=== PATIENT | female | born 1990 | race Caucasian/White ===

== ENCOUNTER → 2020-03-16 13:23 | Outpatient (BNVA) | payer MEDICAID, SELFPAY | PROVIDERS: Family Provider Nurse Practitioner; PCP Nurse Practitioner; Visit Provider Obstetrics & Gynecology | DX: Z34.90 Encounter for supervision of normal pregnancy, unspecified, unspecified trimester (principal) | CPT/HCPCS: 81025 ==

== ENCOUNTER → 2020-03-21 14:31 | Outpatient (BNVA) | payer MEDICAID, SELFPAY | PROVIDERS: Family Provider Nurse Practitioner; PCP Nurse Practitioner; Visit Provider Nurse Practitioner Women's Health | DX: O21.9 Vomiting of pregnancy, unspecified (principal); Z3A.10 10 weeks gestation of pregnancy | CPT/HCPCS: 81000 ==

== ENCOUNTER → 2020-03-28 10:43 | Outpatient (BNVA) | payer MEDICAID, SELFPAY | PROVIDERS: Family Provider Nurse Practitioner; PCP Nurse Practitioner; Visit Provider Obstetrics & Gynecology | DX: Z34.90 Encounter for supervision of normal pregnancy, unspecified, unspecified trimester (principal); Z34.80 Encounter for supervision of other normal pregnancy, unspecified trimester | CPT/HCPCS: 80053; 80307; 81000; 85027; 86592; 86762; 86803; 86850; 86900; 87340; 87806 ==

== ENCOUNTER → 2020-04-03 11:50 | Outpatient (BNVA) | payer MEDICAID, SELFPAY | PROVIDERS: Family Provider Nurse Practitioner; PCP Nurse Practitioner; Visit Provider Obstetrics & Gynecology | DX: Z12.4 Encounter for screening for malignant neoplasm of cervix (principal); Z34.80 Encounter for supervision of other normal pregnancy, unspecified trimester; O21.9 Vomiting of pregnancy, unspecified; Z30.2 Encounter for sterilization; F41.8 Other specified anxiety disorders | CPT/HCPCS: 81000; 87491; 87591; 88175 ==

== ENCOUNTER → 2020-05-16 13:08 | Outpatient (BNVA) | payer MEDICAID, SELFPAY | PROVIDERS: Family Provider Nurse Practitioner; PCP Nurse Practitioner; Visit Provider Nurse Practitioner Women's Health | DX: Z30.2 Encounter for sterilization; F41.8 Other specified anxiety disorders; O21.9 Vomiting of pregnancy, unspecified; Z34.80 Encounter for supervision of other normal pregnancy, unspecified trimester | CPT/HCPCS: 81000 ==

== ENCOUNTER 2020-05-27 14:51 | Emergency (ER) | payer MEDICAID, SELFPAY ==
[2020-05-27 15:30] VITALS: BP 114/78; PULSE 91; RESP 16; TEMP 36.3; O2SAT 100; BMI 33.8
[2020-05-27 16:41] VITALS: RESP 18
--- NOTE | 2020-05-27 16:47 | ED_ITS ---
HPI - Allergic Reaction General: Chief complaint: Allergic Reaction Stated complaint: rash, possible allergic reaction Time Seen by Provider: 05/27/20 16:20 History of Present Illness: HPI narrative: 29-year-old female who is at 18 weeks gestation G8, P5 SAB 2. She presents to the emergency room complaining of a rash that is been spreading it is intensely pruritic she was seen earlier in the week at a walk-in clinic they gave her a topical steroid advised her to use it sparingly now she is noted that it spread in anywhere she itches it become significantly worse. She is not having difficulty breathing she does not know of any new soaps or medicines that have changed that seemed might have precipitated this. MD complaint: hives Onset (ago): day(s) Exposure: unknown Associated symptoms: Reports itching and rash; Deny abdominal pain, difficulty breathing, dysphagia, dizziness, facial swelling, hoarseness, lip swelling, nausea, tongue swelling or vomiting Severity: moderate Treatment prior to arrival: topical medicine Previous Allergic Reaction History: none Review of Systems Const: Denies: fever(s), chills, body aches, change in appetite, fatigue or malaise ENMT: Denies: hoarseness Card: Denies: chest pain, edema, dyspnea on exertion or orthopnea Resp: Denies: dyspnea, productive cough or non-productive cough GI: Denies: abdominal pain, nausea, vomiting or dysphagia : Denies: flank pain, difficulty voiding, dysuria, urinary frequency or urinary urgency Skin/Breast: Denies: rash or pruritus Neuro: Denies: dizziness All/Imm: Denies: tongue swelling or facial swelling PFSH ED PFSH: Medical History Anxiety with depression Reports having problems with anxiety and depression since at least the age of 11. Reports trying lots of medication which has never worked. Most recently in October 2019 was on BuSpar for about 2 months and stopped as it did not help her. Chronic headaches Reports having chronic headaches since the age of 5. Has been evaluated and all evaluation has been negative. She takes ibuprofen and Tylenol as needed for headaches. No pertinent past medical history Denies history of: Heart, lung, liver, kidney problems, hypertension, hypercholesterolemia, diabetes, PE/DVT, bleeding/clotting disorders, genital herpes. [facility] [place] [facility] History of appendectomy 2011[place] [facility] [place] History of dilatation and curettage [address] a [address] Archie Abel at [facility] [place] History of laparoscopy 02/16/2010---> Dr. Genao for pelvic pain-normal uterus ovaries and tubes. No endometriosis or scarring noted.(Operative report scanned) S/P wisdom tooth extraction Family History Mother Family history of thyroid problem Diabetes Hypertension Heart disease Thyroid condition Grandmother Breast cancer Paternal grandmother, diagnosed in her late 60s Colon cancer Maternal grandmother, age at diagnosis unknown Diabetes Maternal grandmother Family/Other Breast cancer Paternal aunt, diagnosed in her 40s Ovarian cancer Maternal aunt, age at diagnosis unknown Diabetes Paternal aunt Father Diabetes Hypertension Stroke Denies family history of Hyperlipidemia Uterine cancer Social History Smoking and tobacco status: never smoked Alcohol intake: never Substance/Drug Use: never Additional social history: - Tobacco use: Denies Alcohol use: Denies Drug use: Denies 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 Female Reproductive History: Date of last menstrual period: 01/16/20 Physical Exam Const: COMMON NORMALS: no acute distress GENERAL APPEARANCE: cooperative and comfortable ORIENTATION/CONSCIOUSNESS: Yes awake, Yes oriented to person, Yes oriented to place and Yes oriented to time HENMT: COMMON NORMALS: normocephalic and atraumatic HEAD & SCALP: normocephalic and atraumatic Eye: COMMON NORMALS: Equal, round and reactive pupils present, EOMs intact bilaterally, conjunctivae normal and no scleral icterus CONJUNCTIVA: Yes conjunctivae normal PUPIL: Yes Equal, round and reactive pupils present Neck/C-Spine: COMMON NORMALS: full ROM, no lymphadenopathy, supple and no JVD Lymph: LYMPHATIC: no lymphadenopathy noted and no lymphedema noted Resp: COMMON NORMALS: normal respiratory effort, No retractions, No use of accessory muscles and clear to auscultation bilaterally AUSCULTATION: clear to auscultation bilaterally Cardio: COMMON NORMALS: no JVD, regular rate, regular rhythm and No murmurs present (Cardio) RATE: regular rate RHYTHM: regular rhythm GI: COMMON NORMALS: Soft to palpation and No hepatosplenomegaly present AUSCULTATION: Yes normoactive bowel sounds PALPATION: Yes Soft to palpation, No Tenderness to palpation present (GI), No Guarding due to palpation present (GI) and Yes No hepatosplenomegaly present Extremity: COMMON NORMALS: normal to inspection, capillary refill normal, no clubbing, cyanosis or edema, no calf tenderness and no pedal edema Neuro: SENSORIUM/ORIENTATION: Yes oriented to person, Yes oriented to place and Yes oriented to time Skin: NARRATIVE SKIN EXAM: Typical urticarial wheal and flare on the distal extremities on the trunk sparing the upper and middle back the lower back has some areas of excoriation that are raised urticarial-like lesions. Dermatogr aphia also noted onto the lower extremities. Course Vital Signs: Vital signs: Vital Signs Temperature 97.3 F L 05/27/20 15:30 Pulse Rate 91 05/27/20 15:30 Respiratory Rate 18 05/27/20 16:41 Blood Pressure 114/78 05/27/20 15:30 Pulse Oximetry 100 05/27/20 15:30 MDM - Allergic Reaction MDM Narrative: Medical decision making narrative: Is worried she had bedbugs reassured her this is not bedbugs typical urticaria have her increase her Zyrtec to twice a day we will give her a shot of dexamethasone here and then have her do a Medrol Dosepak follow-up as needed Discharge Plan Discharge Patient Disposition: Home Clinical Impression: Urticaria Condition: Stable Prescriptions: New Medrol (Timoteo) 4 mg tablets,dose pack See Rx Instructions .ROUTE .COMPLEX Qty: 21 RF: 0 Changed Zyrtec 10 mg capsule 10 mg PO BID Qty: 30 RF: 0 No Action acetaminophen [Tylenol] 325 mg capsule 325 mg PO QID PRN (Reason: Pain) RF: 0 triamcinolone acetonide 0.1 % ointment 1 applic TOPICAL BID 3 Days Qty: 15 RF: 0 Vitamin Plus Low Iron 27 mg iron- 1 mg tablet 1 tab PO DAILY RF: 0 Discharge Orders: Discharge Order (Routine); Ordered 05/27/20 Ordered By: Chucky Hurt Referrals: Kailey Espinosa FNP [Primary Care Provider] - Discharge Diet: Usual diet Discharge Activity: Increase activity as tolerated Activity Restrictions/Additional Instructions: Follow-up with your primary care doctor as needed if worsens or changes recheck in the ER with primary care physician Coding Level of Care Code ED Padded Products Inspector Trimmer for Mckenna Robles
[2020-05-27 16:57] VITALS: BP 118/73; PULSE 88; RESP 18; O2SAT 98
[2020-05-27] MEDS: dexamethasone 10 mg/mL INJ IM (16:57)
== END 2020-05-27 16:59 | disposition home or self-care (01) ==
PROVIDERS: Emergency Provider Family Medicine; PCP Nurse Practitioner
DX: O26.892 Other specified pregnancy related conditions, second trimester (principal); L50.9 Urticaria, unspecified; Z3A.18 18 weeks gestation of pregnancy
CPT/HCPCS: 12345; 96372; 99281; 99283; J1100

== ENCOUNTER 2020-05-29 16:37 | Emergency (ER) | payer MEDICAID, SELFPAY ==
[2020-05-29 16:40] VITALS: BP 122/78; PULSE 90; RESP 18; TEMP 36.7; O2SAT 98; BMI 33.8
--- NOTE | 2020-05-29 17:14 | ED_ITS ---
HPI - Allergic Reaction General: Chief complaint: Allergic Reaction Stated complaint: hands and feet swelling, sore throat Time Seen by Provider: 05/29/20 17:13 History of Present Illness: HPI narrative: Patient is a 18 week gestation 29-year-old female who comes to the ED with painful rash on bilateral hands and feet and throat pain. Patient was seen here on May 27 for same complaint and she was given an IM dose of steroids, sent home with a Medrol Dosepak and told to take Zyrtec daily. Patient says today rash continues to spread and she describes it as being more painful to the hands and feet. Patient states that today she woke up and it hurt her to swallow. She has a past medical history of acid reflux and has not been taking any of her acid reflux meds due to being . Patient denies any trouble breathing or throat swelling. Denies any vaginal bleeding or discharge. Associated symptoms: Deny abdominal pain, nausea or vomiting Review of Systems Const: Denies: fever(s), chills or fatigue Eyes: Denies: change in vision or eye discomfort ENMT: Reports: throat pain; Denies: odynophagia, nasal discharge or nasal congestion Card: Denies: chest pain, palpitations, edema, swelling of feet/ankles, dyspnea on exertion or orthopnea Resp: Denies: dyspnea, productive cough or non-productive cough GI: Denies: abdominal pain, nausea, vomiting, diarrhea, constipation or hematochezia : Denies: flank pain, dysuria, hematuria, vaginal bleeding or vaginal discharge Musc: Denies: neck pain, back pain or extremity swelling Skin/Breast: Reports: rash; Denies: new lesions Neuro: Denies: headache(s), numbness in extremities or weakness in extremities [facility] ED PFSH: Medical History Anxiety with depression Reports having problems with anxiety and depression since at least the age of 11. Reports trying lots of medication which has never worked. Most recently in October 2019 was on BuSpar for about 2 months and stopped as it did not help her. Chronic headaches Reports having chronic headaches since the age of 5. Has been evaluated and all evaluation has been negative. She takes ibuprofen and Tylenol as needed for headaches. No pertinent past medical history Denies history of: Heart, lung, liver, kidney problems, hypertension, hypercholesterolemia, diabetes, PE/DVT, bleeding/clotting disorders, genital herpes. PCP: Tierra Fagan [facility] Surgical History History of appendectomy 2011[place] [facility] [place] History of dilatation and curettage 2009 [address] a [address] Archie Abel at [facility] [place] History of laparoscopy 02/16/2010---> Dr. Genao for pelvic pain-normal uterus ovaries and tubes. No endometriosis or scarring noted.(Operative report scanned) S/P wisdom tooth extraction Family History Mother Family history of thyroid problem Diabetes Hypertension Heart disease Thyroid condition Grandmother Breast cancer Paternal grandmother, diagnosed in her late 60s Colon cancer Maternal grandmother, age at diagnosis unknown Diabetes Maternal grandmother Family/Other Breast cancer Paternal aunt, diagnosed in her 40s Ovarian cancer Maternal aunt, age at diagnosis unknown Diabetes Paternal aunt Father Diabetes Hypertension Stroke Denies family history of Hyperlipidemia Uterine cancer Social History Smoking and tobacco status: never smoked Alcohol intake: never Additional social history: - Tobacco use: Denies Alcohol use: Denies Drug use: Denies 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 Female Reproductive History: Date of last menstrual period: 01/16/20 Physical Exam Const: COMMON NORMALS: no acute distress, patient oriented x3, healthy appearing and alert GENERAL APPEARANCE: cooperative and comfortable HENMT: COMMON NORMALS: normocephalic HEAD & SCALP: normocephalic MOUTH: Normal oral and palatal mucosa present THROAT: posterior oropharynx normal and uvula midline Eye: COMMON NORMALS: Equal, round and reactive pupils present PUPIL: Yes Equal, round and reactive pupils present Neck/C-Spine: COMMON NORMALS: supple GENERAL: Yes normal visual inspection Resp: COMMON NORMALS: normal respiratory effort, No retractions, No use of accessory muscles and clear to auscultation bilaterally AUSCULTATION: clear to auscultation bilaterally Cardio: COMMON NORMALS: regular rate, regular rhythm, S1 normal heart sound present, S2 normal heart sound present, No gallops present (Cardio), No clicks present (Cardio), No murmurs present (Cardio) and Peripheral pulses 2+ throughout RATE: regular rate RHYTHM: regular rhythm HEART SOUNDS: S1 normal heart sound present and S2 normal heart sound present PERIPHERAL PULSES: Peripheral pulses 2+ throughout GI: COMMON NORMALS: Normal to inspection, nondistended, normoactive bowel sounds present, Soft to palpation, non-tender and no masses PALPATION: Yes Soft to palpation : COMMON NORMALS: Yes no CVA tenderness BLADDER/KIDNEY EXAM: Yes no CVA tenderness Back/Pelvis: COMMON NORMALS: no CVA tenderness Extremity: NARRATIVE EXTREMITY EXAM: Patient has urticaric rash on both upper and lower extremities bilaterally. Rash is even on dorsal and palmar side of hands and feet. It is pruritic and patient also describes it being a little painful. Neuro: COMMON NORMALS: patient oriented x3 and moves all extremities SENSORIUM/ORIENTATION: Yes alert Skin: NARRATIVE SKIN EXAM: Patient has urticaric rash on both upper and lower extremities bilaterally. Rash is even on dorsal and palmar side of hands and feet. It is pruritic and patient also describes it being a little painful. GENERAL SKIN EXAM: dry skin Course Consultations: Consultation #1: I contacted Dr. Hidalgo the OB doc on-call and discussed patients case with her. Dr. Hidalgo that I can give patient another steroid injection and discharge patient and have her call OB clinic tomorrow and she will see patient to further investigate the rash. Time: 18:15 Vital Signs: Vital signs: Vital Signs Temperature 98.0 F 05/29/20 16:40 Pulse Rate 88 05/29/20 19:00 Respiratory Rate 16 05/29/20 19:00 Blood Pressure 121/90 05/29/20 19:00 Pulse Oximetry 100 05/29/20 19:00 MDM - Allergic Reaction MDM Narrative: Medical decision making narrative: Patient is a 18 weeks gestation normal 29-year-old female comes to the ED with a rash and acid reflux symptoms. Physical exam showed Patient has urticaric rash on both upper and lower extremities bilaterally. Rash is even on dorsal and palmar side of hands and feet. It is pruritic and patient also describes it being a little painful. Denies any shortness of breath or trouble breathing. I contacted Dr. Hidalgo the OB doc on-call and discussed patients case with her. Dr. Hidalgo wanted me to give patient another steroid injection and discharge and have her call OB clinic tomorrow and she will see patient to further investigate the rash. Patient was given Kenalog IM, Mylanta, hydroxyzine and hydrocodone while here in the ED. patient was told to contact Dr. Hidalgo office in morning to set up an appointment for later during the day. Patient understood and agreed with plan. Discharge Plan Discharge Patient Disposition: Home Clinical Impression: Urticaria Condition: Stable Prescriptions: No Action Vitamin Plus Low Iron 27 mg iron- 1 mg tablet 1 tab PO DAILY RF: 0 methylprednisolone [Medrol (Timoteo)] 4 mg tablets,dose pack See Rx Instructions .ROUTE .COMPLEX Qty: 21 RF: 0 Zyrtec 10 mg capsule 10 mg PO BID Qty: 30 RF: 0 Tylenol Extra Strength 500 mg Tablet 1,000 mg PO PRN RF: 0 Discharge Orders: Discharge Order (Routine); Ordered 05/29/20 Ordered By: Bob Bella Referrals: Kailey Espinosa FNP [Primary Care Provider] - Discharge Diet: Regular Discharge Activity: Increase activity as tolerated Patient Instructions: Urticaria (ED) Activity Restrictions/Additional Instructions: Follow-up with medical provider as directed. Contact Dr. Hidalgo's office tomorrow morning, so you can set up an appointment to see her sometime later in the day. Continue taking home medications as prescribed. Return to the ER or your medical provider if condition worsens. Please read and understand discharge instructions. If any questions, please ask. Discharge Date/Time: 05/29/20 19:26 Coding Level of Care Code ED Guitar Instructor for Mckenna Fwrachael Exam Comprehensive
[2020-05-29] MEDS: hyDROXYzine 25 mg Capsule 50 MG PO (17:36)
[2020-05-29] MEDS: HYDROcodone-acetaminophen 5-325 mg Tablet 1 TAB PO (17:36)
[2020-05-29] MEDS: alum-mag-hydroxide-sime 30 mL UDC PO (17:51)
[2020-05-29] MEDS: triamcinolone 40 mg/mL SDV IM (18:42)
[2020-05-29 19:00] VITALS: BP 121/90; PULSE 88; RESP 16; O2SAT 100
== END 2020-05-29 19:26 | disposition home or self-care (01) ==
PROVIDERS: Emergency Provider Physician Assistant; PCP Nurse Practitioner
DX: L50.9 Urticaria, unspecified (principal)
CPT/HCPCS: 12345; 96372; 99283; J3301

== ENCOUNTER 2020-06-01 15:31 | Emergency (ER) | payer MEDICAID, SELFPAY ==
[2020-06-01 15:46] VITALS: BP 139/82; PULSE 97; RESP 14; TEMP 36.8; O2SAT 100; BMI 33.8
--- NOTE | 2020-06-01 16:11 | ED_ITS ---
HPI - General Adult General: Chief complaint: Shortness of Breath/Dyspnea Stated complaint: sob/rash Time Seen by Provider: 06/01/20 16:02 History of Present Illness: HPI narrative: Patient says she is been struggling with anxiety feels short of breath at times. Also with a rash that comes and goes not able to follow Dr. Rocky multani and she said come the ER if needed and asked why the patient is here. Said she also worries about mold and other things in her trailer MD complaint: Anxiety Onset (ago): year(s) Associated symptoms: Reports rash (Comes and goes); Deny chest pain, dyspnea, headache(s), nausea or vomiting Review of Systems Const: Denies: fever(s), chills or body aches Eyes: Denies: change in vision or blurry vision ENMT: Denies: throat pain or nasal congestion Card: Denies: chest pain or dyspnea on exertion Resp: Denies: dyspnea, productive cough or non-productive cough GI: Denies: abdominal pain, nausea or vomiting Musc: Denies: extremity pain Skin/Breast: Reports: rash (Comes and goes) Neuro: Denies: headache(s) Psych: Reports: anxiety; Denies: depression Jw/Lymph: Denies: easy bruising PFSH ED PFSH: Medical History Anxiety with depression Reports having problems with anxiety and depression since at least the age of 11. Reports trying lots of medication which has never worked. Most recently in October 2019 was on BuSpar for about 2 months and stopped as it did not help her. Chronic headaches Reports having chronic headaches since the age of 5. Has been evaluated and all evaluation has been negative. She takes ibuprofen and Tylenol as needed for headaches. No pertinent past medical history Denies history of: Heart, lung, liver, kidney problems, hypertension, hypercholesterolemia, diabetes, PE/DVT, bleeding/clotting disorders, genital herpes. PCP: Tierra Fagan [facility] Surgical History History of appendectomy 2011[place] [facility] [place] History of dilatation and curettage [address] a [address] Archie Abel at [facility] [place] History of laparoscopy 02/16/2010---> Dr. Genao for pelvic pain-normal uterus ovaries and tubes. No endometriosis or scarring noted.(Operative report scanned) S/P wisdom tooth extraction Family History Mother Family history of thyroid problem Diabetes Hypertension Heart disease Thyroid condition Grandmother Breast cancer Paternal grandmother, diagnosed in her late 60s Colon cancer Maternal grandmother, age at diagnosis unknown Diabetes Maternal grandmother Family/Other Breast cancer Paternal aunt, diagnosed in her 40s Ovarian cancer Maternal aunt, age at diagnosis unknown Diabetes Paternal aunt Father Diabetes Hypertension Stroke Denies family history of Hyperlipidemia Uterine cancer Social History Smoking and tobacco status: never smoked Alcohol intake: never Additional social history: - Tobacco use: Denies Alcohol use: Denies Drug use: Denies 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 Female Reproductive History: Date of last menstrual period: 01/08/20 Physical Exam Const: COMMON NORMALS: no acute distress, average body habitus and patient oriented x3 HENMT: COMMON NORMALS: normocephalic HEAD & SCALP: normal to inspection and normocephalic FACE & SINUS: normal facial exam Eye: COMMON NORMALS: conjunctivae normal GENERAL EYE: appearance normal, both eyes and all related structures CONJUNCTIVA: Yes conjunctivae normal Neck/C-Spine: COMMON NORMALS: no JVD Chest: COMMONS NORMALS: normal inspection of the chest Resp: COMMON NORMALS: normal respiratory effort and clear to auscultation bilaterally AUSCULTATION: clear to auscultation bilaterally Cardio: COMMON NORMALS: no JVD, regular rate and regular rhythm RATE: regular rate RHYTHM: regular rhythm GI: COMMON NORMALS: Normal to inspection, nondistended, normoactive bowel sounds present Extremity: COMMON NORMALS: normal to inspection and full ROM Neuro: COMMON NORMALS: patient oriented x3 Psych: MOOD & AFFECT: Yes anxious Skin: COMMON NORMALS: no rashes or lesions noted GENERAL SKIN EXAM: no rashes or lesions noted Course Vital Signs: Vital signs: Vital Signs Temperature 98.3 F 06/01/20 15:46 Pulse Rate 97 06/01/20 15:46 Respiratory Rate 14 06/01/20 15:46 Blood Pressure 139/82 06/01/20 15:46 Pulse Oximetry 100 06/01/20 15:46 Discharge Plan Discharge Condition: Good Prescriptions: No Action Vitamin Plus Low Iron 27 mg iron- 1 mg tablet 1 tab PO DAILY RF: 0 methylprednisolone [Medrol (Timoteo)] 4 mg tablets,dose pack See Rx Instructions .ROUTE .COMPLEX Qty: 21 RF: 0 Zyrtec 10 mg capsule 10 mg PO BID Qty: 30 RF: 0 Tylenol Extra Strength 500 mg Tablet 1,000 mg PO PRN RF: 0 Coding Level of Care Code ED Software Build Engineer for Mckenna Robles
[2020-06-01 16:15] VITALS: RESP 18
== END 2020-06-01 16:29 | disposition home or self-care (01) ==
LOC: ER 16:21
PROVIDERS: Emergency Provider Nurse Practitioner Family; PCP Nurse Practitioner
DX: R06.02 Shortness of breath (principal); R21 Rash and other nonspecific skin eruption
CPT/HCPCS: 12345; 99281

== ENCOUNTER → 2020-06-19 13:04 | Outpatient (BNVA) | payer MEDICAID, SELFPAY | PROVIDERS: PCP Nurse Practitioner; Visit Provider Obstetrics & Gynecology | DX: Z34.90 Encounter for supervision of normal pregnancy, unspecified, unspecified trimester (principal) | CPT/HCPCS: 81000 ==

== ENCOUNTER 2020-06-21 18:41 | Emergency (ER) | payer MEDICAID, SELFPAY ==
--- NOTE | 2020-06-21 18:44 | ECG_ITS ---
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 Measurements Intervals [place] Rate: 91 P: 51 DE: 142 QRS: 44 QRSD: 90 T: 29 QT: 346 QTc: 427 Interpretive Statements SINUS RHYTHM No previous ECG available for comparison Electronically Signed On 06-22-2020 19:32:00 CDT by Andrea Castro M.D. [id number]
[2020-06-21 18:46] VITALS: BP 110/66; PULSE 96; RESP 16; TEMP 37.1; O2SAT 100; BMI 36.6
[2020-06-21 19:18] LABS: Eosinophils # 0.1 10^3/uL (0.0-0.8); Eosinophils % 1.4 %; Hematocrit 33.8 % (37.0-47.0); Hemoglobin 10.6 g/dL (11.5-15.3); Lymphocytes # 0.8 10^3/uL (0.8-4.8); Lymphocytes % 21.3 %; Mean Corpuscular HGB Conc 31.4 g/dL (30.0-36.0); Mean Corpuscular Hemoglobin 28.6 pg (28.0-34.0); Mean Corpuscular Volume 91.1 fL (81-99); Mean Platelet Volume 9.1 fL (7.4-10.4); Monocytes # 0.3 10^3/uL (0.2-0.9); Monocytes % 8.2 %; Neutrophils # 2.52 10^3/uL (1.8-7.7); Neutrophils % 68.8 %; Nucleated Red Blood Cells % 0 %; Platelet Count 246 10^3/cmm (130-400); Red Blood Count 3.71 10^6/uL (4.1-5.3); Red Cell Distribution Width 12.9 % (12.1-15.1); White Blood Count 3.7 10^3/uL (4.0-10.0)
[2020-06-21 19:34] LABS: Alanine Aminotransferase < 5 U/L (0-33); Alkaline Phosphatase 77 IU/L (35-105); Anion Gap 14.5 (5-19); Aspartate Amino Transferase 7 U/L (0-32); Blood Urea Nitrogen 5 mg/dL (6-20); Calcium 7.7 mg/dL (8.5-10.5); Carbon Dioxide 18 mmol/L (22-29); Chloride 106 mmol/L (98-107); Globulin 2.7 g/dL (1.3-4.6); Glomerular Filtration Rate 186.2 mL/min (90-130); Glucose 109 mg/dL (65-115); Osmolality Calculated 278 mOsm/kg (285-295); Potassium 3.5 mmol/L (3.5-5.1); Sodium 135 mmol/L (136-145); Total Bilirubin 0.2 mg/dL (0.15-1.2); Total Protein 5.7 g/dL (6.6-8.7)
[2020-06-21 19:36] LABS: D Dimer 0.62 ug/mIFEU (0-0.59); Troponin(5th) Baseline 6 ng/L (0-10)
--- NOTE | 2020-06-21 20:55 | ECG_ITS ---
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 Measurements Intervals [place] Rate: 90 P: 45 [place]: 144 QRS: 43 QRSD: 84 T: 21 QT: 348 QTc: 427 Interpretive Statements SINUS RHYTHM Compared to ECG 06/21/2020 18:56:26 No significant changes Electronically Signed On 06-22-2020 19:45:56 CDT by Andrea Castro M.D. [id number] f
--- NOTE | 2020-06-21 20:55 | ECG_ITS ---
[facility] Test Date: 2020-06-21 Pat Name: Nerissa Sutherland Department: Room: Gender: Female Junior Administrative Assistant: : 1990 Requested By: Marielena Figueroa Order Number: [id number] Conor MD: Andrea Castro M.D. Measurements Intervals [place] Rate: 91 P: 51 NV: 142 QRS: 44 QRSD: 90 T: 29 QT: 346 QTc: 427 Interpretive Statements SINUS RHYTHM No previous ECG available for comparison Electronically Signed On 06-22-2020 19:44:07 CDT by Andrea Castro M.D. [id number]
--- NOTE | 2020-06-21 21:06 | W.ED.CHESTPA ---
HPI - Chest Pain General: Chief Complaint: Chest Pain Stated Complaint: CHEST PAIN Time Seen by Provider: 06/21/20 18:42 History of Present Illness: HPI narrative: This patient is a 29-year-old female who presents with chest pain. She is about 22 weeks . She has a lot of stress in her life right now. This is her sixth child that she is with now. 1 of her children is autistic and very difficult to manage at home. Her boyfriend just found out that he has cancer. She notes that she does not get along with the rest of her family. She has a history of anxiety and depression. Her chest pain is been constant all day. She describes it as a dull sensation in the left upper part of her lung. Nothing makes it better or worse. She has never had it before. She is not short of breath. She has not had unusual nausea. No problems with the so far and she is feeling the baby move. complaint: chest heaviness (Left upper) Onset (ago): day(s) (Today) Timing of current episode: constant Prior episodes: No Onset: during rest Pain location: left chest Pain radiation: none Severity: moderate Quality: aching Exacerbating factors: nothing Associated symptoms: Reports no associated symptoms; Deny abdominal pain, dyspnea, fever(s), nausea or vomiting Review of Systems General: Reports: 10 or more systems reviewed and unremarkable except in HPI and below Const: Reports: fatigue and malaise; Denies: fever(s) or chills Eyes: Denies: change in vision ENMT: Denies: odynophagia Card: Reports: chest pain; Denies: swelling of feet/ankles Resp: Denies: dyspnea, productive cough or non-productive cough GI: Denies: abdominal pain, nausea or vomiting : Denies: flank pain or difficulty voiding Musc: Denies: neck pain or back pain Skin/Breast: Denies: rash Neuro: Denies: headache(s), numbness in extremities or weakness in extremities Jw/Lymph: Denies: easy bruising or easy bleeding PFSH ED PFSH: Medical History Anxiety with depression Reports having problems with anxiety and depression since at least the age of 11. Reports trying lots of medication which has never worked. Most recently in October 2019 was on BuSpar for about 2 months and stopped as it did not help her. Chronic headaches Reports having chronic headaches since the age of 5. Has been evaluated and all evaluation has been negative. She takes ibuprofen and Tylenol as needed for headaches. No pertinent past medical history Denies diabetes, asthma, hypertension, seizures, DVT/PE. PCP: Tierra Fagan [facility] Surgical History History of appendectomy 2011-laparoscopic procedure at [facility] [place] History of dilatation and curettage [address] a [address] Archie Abel at [facility] [place] History of laparoscopy 02/16/2010---> Dr. Genao for pelvic pain-normal uterus ovaries and tubes. No endometriosis or scarring noted.(Operative report scanned) S/P wisdom tooth extraction Family History Mother Family history of thyroid problem Diabetes Hypertension Heart disease Thyroid condition Grandmother Breast cancer Paternal grandmother, diagnosed in her late 60s Colon cancer Maternal grandmother, age at diagnosis unknown Diabetes Maternal grandmother Family/Other Breast cancer Paternal aunt, diagnosed in her 40s Ovarian cancer Maternal aunt, age at diagnosis unknown Diabetes Paternal aunt Father Diabetes Hypertension Stroke Denies family history of Hyperlipidemia Uterine cancer Social History Smoking and tobacco status: never smoked Alcohol intake: never Female Reproductive History: Date of last menstrual period: 01/06/20 Physical Exam Const: COMMON NORMALS: no acute distress, patient oriented x3, no limitations and alert GENERAL APPEARANCE: cooperative and comfortable HENMT: HEAD & SCALP: normal to inspection FACE & SINUS: normal facial exam Eye: GENERAL EYE: appearance normal, both eyes and all related structures Neck/C-Spine: COMMON NORMALS: supple, no meningeal signs and no JVD Chest: COMMONS NORMALS: normal inspection of the chest Resp: COMMON NORMALS: normal respiratory effort, No use of accessory muscles and clear to auscultation bilaterally AUSCULTATION: clear to auscultation bilaterally Cardio: COMMON NORMALS: no JVD, regular rate, regular rhythm and No murmurs present (Cardio) RATE: regular rate RHYTHM: regular rhythm GI: COMMON NORMALS: Normal to inspection, nondistended, normoactive bowel sounds present, Soft to palpation and non-tender INSPECTION: Yes normal to inspection and Yes gravid abdomen AUSCULTATION: Yes normoactive bowel sounds PALPATION: Yes Soft to palpation Back/Pelvis: COMMON NORMALS: thoracic and lumbar spine normal to inspection Extremity: COMMON NORMALS: normal to inspection Neuro: COMMON NORMALS: patient oriented x3, moves all extremities, no focal motor deficits and no sensory deficits noted SENSORIUM/ORIENTATION: Yes alert MENINGEAL SIGNS: Yes no meningeal signs Psych: COMMON NORMALS: mental status grossly normal, cooperative and normal affect Skin: COMMON NORMALS: no rashes or lesions noted and turgor normal GENERAL SKIN EXAM: no rashes or lesions noted and turgor normal Course ED course: Patient with chest pain which does not seem cardiac. She has had constant pain all day. No history of DVT. She is so at risk of that. Her pain is certainly not typical for that but needs to be ruled out. Vital signs are normal. Sat is 100%. Labs have been sent and she was resting comfortably and asking for something to eat. Vital Signs: Vital signs: Vital Signs Temperature 98.5 F 06/21/20 22:46 Pulse Rate 92 06/21/20 22:46 Respiratory Rate 18 06/21/20 22:46 Blood Pressure 105/73 06/21/20 22:46 Pulse Oximetry 99 06/21/20 22:46 MDM - Chest Pain Lab Data: Labs: Lab Results 06/21/20 06/21/20 06/21/20 Range/Units 19:11 19:11 19:11 WBC 3.7 L (4.0-10.0) 10^3/ uL RBC 3.71 L (4.1-5.3) 10^6/u L Hgb 10.6 L (11.5-15.3) g/dL Hct 33.8 L (37.0-47.0) % MCV 91.1 (81-99) fL MCH 28.6 (28.0-34.0) pg MCHC 31.4 (30.0-36.0) g/dL RDW 12.9 (12.1-15.1) % Plt Count 246 (130-400) 10^3/c mm MPV 9.1 (7.4-10.4) fL Neut % (Auto) 68.8 % Lymph % (Auto) 21.3 % [place] % (Auto) 8.2 % Eos % (Auto) 1.4 % Baso % (Auto) 0.0 % Neut # (Auto) 2.52 (1.8-7.7) 10^3/u L Lymph # (Auto) 0.8 (0.8-4.8) 10^3/u L [place] # (Auto) 0.3 (0.2-0.9) 10^3/u L Eos # (Auto) 0.1 (0.0-0.8) 10^3/u L Baso # (Auto) 0.0 (0.0-0.1) 10^3/u L Nucleated RBC % (a uto) 0 % Nucleated RBCs # 0.0 /100WBC D-Dimer 0.62 H (0-0.59) ug/mIFE U Sodium 135 L (136-145) mmol/L Potassium 3.5 (3.5-5.1) mmol/L Chloride 106 (98-107) mmol/L Carbon Dioxide 18 L (22-29) mmol/L Anion Gap 14.5 (5-19) BUN 5 L (6-20) mg/dL Creatinine 0.4 L (0.5-0.9) mg/dL GFR Calculation 186.2 H (90-130) mL/min Glucose 109 (65-115) mg/dL Calculated Osmolal ity 278 L (285-295) mOsm/k g Calcium 7.7 L (8.5-10.5) mg/dL Total Bilirubin 0.2 (0.15-1.2) mg/dL AST 7 (0-32) U/L ALT < 5 (0-33) U/L Alkaline Phosphata se 77 (35-105) IU/L Troponin T Baselin e (0-10) ng/L Troponin T 120 Min [place] (0-10) ng/L Delta Troponin T (0-10) ABS# Total Protein 5.7 L (6.6-8.7) g/dL Albumin 3.0 L (3.5-5.2) g/dL Globulin 2.7 (1.3-4.6) g/dL 06/21/20 06/21/20 Range/Units 19:11 22:01 WBC (4.0-10.0) 10^3/ uL RBC (4.1-5.3) 10^6/u L Hgb (11.5-15.3) g/dL Hct (37.0-47.0) % MCV (81-99) fL MCH (28.0-34.0) pg MCHC (30.0-36.0) g/dL RDW (12.1-15.1) % Plt Count (130-400) 10^3/c mm MPV (7.4-10.4) fL Neut % (Auto) % Lymph % (Auto) % [place] % (Auto) % Eos % (Auto) % Baso % (Auto) % Neut # (Auto) (1.8-7.7) 10^3/u L Lymph # (Auto) (0.8-4.8) 10^3/u L [place] # (Auto) (0.2-0.9) 10^3/u L Eos # (Auto) (0.0-0.8) 10^3/u L Baso # (Auto) (0.0-0.1) 10^3/u L Nucleated RBC % (a uto) % Nucleated RBCs # /100WBC D-Dimer (0-0.59) ug/mIFE U Sodium (136-145) mmol/L Potassium (3.5-5.1) mmol/L Chloride (98-107) mmol/L Carbon Dioxide (22-29) mmol/L Anion Gap (5-19) BUN (6-20) mg/dL Creatinine (0.5-0.9) mg/dL GFR Calculation (90-130) mL/min Glucose (65-115) mg/dL Calculated Osmolal ity (285-295) mOsm/k g Calcium (8.5-10.5) mg/dL Total Bilirubin (0.15-1.2) mg/dL AST (0-32) U/L ALT (0-33) U/L Alkaline Phosphata se (35-105) IU/L Troponin T Baselin e 6 (0-10) ng/L Troponin T 120 Min [place] 6.00 (0-10) ng/L Delta Troponin T 0 (0-10) ABS# Total Protein (6.6-8.7) g/dL Albumin (3.5-5.2) g/dL Globulin (1.3-4.6) g/dL Discharge Plan Discharge Patient Disposition: Home Clinical Impression: Chest pain Qualifiers: Chest pain type: unspecified Qualified Code(s): R07.9 - Chest pain, unspecified Qualifiers: Weeks of gestation: 21 weeks Qualified Code(s): Z3A.21 - 21 weeks gestation of Condition: Stable Prescriptions: No Action Vitamin Plus Low Iron 27 mg iron- 1 mg tablet 1 tab PO DAILY RF: 0 Zyrtec 10 mg capsule 10 mg PO BID Qty: 30 RF: 0 acetaminophen [Tylenol Extra Strength] 500 mg Tablet 1,000 mg PO PRN RF: 0 Discharge Orders: Discharge Order (Routine); Ordered 06/21/20 Ordered By: Marielena Damian Discharge Diet: Usual diet Discharge Activity: Resume usual activity Patient Instructions: Chest Pain (ED) Activity Restrictions/Additional Instructions: Return to the emergency department if new or worse symptoms including worsening chest pain or shortness of breath. Follow-up with your NETWORK DESKTOP SUPPORT SPECIALIST for regular care and to discuss your stress, anxiety issues. Discharge Date/Time: 06/21/20 22:54 Coding Level of Care Code ED Central Office Equipment Installer for Mckenna Fwd Exam Comprehensive
--- NOTE | 2020-06-21 21:31 | PC.NURSE ---
Up to bathroom @ 1950 given soda and pudding per her request.
[2020-06-21 21:38] VITALS: BP 97/66; PULSE 74; RESP 20; O2SAT 99
[2020-06-21 22:34] LABS: Troponin 5 2HR Delta 0 ABS# (0-10)
[2020-06-21 22:46] VITALS: BP 105/73; PULSE 92; RESP 18; TEMP 36.9; O2SAT 99
== END 2020-06-21 22:54 | disposition home or self-care (01) ==
PROVIDERS: Emergency Provider Emergency Medicine
DX: O26.892 Other specified pregnancy related conditions, second trimester (principal); R07.9 Chest pain, unspecified; Z3A.21 21 weeks gestation of pregnancy
CPT/HCPCS: 12345; 36415; 80053; 84484; 85025; 85378; 93005; 99281; 99283

== ENCOUNTER → 2020-07-10 12:59 | Outpatient (BNVA) | payer MEDICAID, SELFPAY | PROVIDERS: Visit Provider Obstetrics & Gynecology | DX: Z34.90 Encounter for supervision of normal pregnancy, unspecified, unspecified trimester (principal) | CPT/HCPCS: 81000 ==

== ENCOUNTER 2020-07-16 18:27 | Outpatient (CLI) | payer MEDICAID, SELFPAY ==
[2020-07-16] VITALS (8 sets, daily range): BP systolic 0–116; BP diastolic 0–70; PULSE 83–87; RESP 16; TEMP 36.9; BMI 34.0
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
[2020-07-16] MEDS: acetaminophen 325 mg Tablet 650 MG PO (20:11)
== END 2020-07-16 21:20 | disposition home or self-care (01) ==
LOC: OPOB 18:39 → OBGYN 19:03
PROVIDERS: Visit Provider Obstetrics & Gynecology
DX: O71.89 Other specified obstetric trauma (principal); Z3A.00 Weeks of gestation of pregnancy not specified
CPT/HCPCS: 76815; 99211

== ENCOUNTER → 2020-08-08 15:31 | Outpatient (BNVA) | payer MEDICAID, SELFPAY | PROVIDERS: Visit Provider Obstetrics & Gynecology | DX: Z34.80 Encounter for supervision of other normal pregnancy, unspecified trimester (principal); Z30.2 Encounter for sterilization | CPT/HCPCS: 81000; 82950; 85027 ==

== ENCOUNTER → 2020-08-21 14:33 | Outpatient (BNVA) | payer MEDICAID, SELFPAY | PROVIDERS: Visit Provider Obstetrics & Gynecology | DX: Z34.90 Encounter for supervision of normal pregnancy, unspecified, unspecified trimester (principal) | CPT/HCPCS: 81000 ==

== ENCOUNTER → 2020-09-04 14:24 | Outpatient (BNVA) | payer MEDICAID, SELFPAY | PROVIDERS: Visit Provider Obstetrics & Gynecology | DX: O99.613 Diseases of the digestive system complicating pregnancy, third trimester (principal); O99.013 Anemia complicating pregnancy, third trimester; K21.9 Gastro-esophageal reflux disease without esophagitis; Z30.2 Encounter for sterilization; F41.8 Other specified anxiety disorders | CPT/HCPCS: 81000; 85025 ==

== ENCOUNTER → 2020-09-06 10:22 | Outpatient (BNVA) | payer MEDICAID, SELFPAY | PROVIDERS: Visit Provider Internal Medicine | DX: O99.013 Anemia complicating pregnancy, third trimester (principal) | CPT/HCPCS: 82607; 82746; 83550; 84443; 85045 ==

== ENCOUNTER → 2020-09-18 15:14 | Outpatient (BNVA) | payer MEDICAID, SELFPAY | PROVIDERS: Visit Provider Obstetrics & Gynecology | DX: Z34.90 Encounter for supervision of normal pregnancy, unspecified, unspecified trimester (principal) | CPT/HCPCS: 81000 ==

== ENCOUNTER 2020-09-21 10:25 | Outpatient (RCR) | payer MEDICAID, SELFPAY ==
[2020-09-21 10:25] VITALS: BP 116/86; PULSE 87; RESP 18; TEMP 36.1; O2SAT 98
[2020-09-21 11:11] VITALS: BMI 34.7
[2020-09-21] MEDS: iron sucrose 500 MG in sodium chloride 0.9% 250 ML 68.8 MG IV (11:33)
== END 2020-10-05 23:59 | disposition home or self-care (01) ==
LOC: OPS 10:25
PROVIDERS: Visit Provider Internal Medicine
DX: O99.013 Anemia complicating pregnancy, third trimester (principal); Z3A.00 Weeks of gestation of pregnancy not specified
CPT/HCPCS: 96365; 96366; J1756; J7050

== ENCOUNTER → 2020-10-02 13:14 | Outpatient (BNVA) | payer MEDICAID, SELFPAY | PROVIDERS: Visit Provider Obstetrics & Gynecology | DX: Z34.80 Encounter for supervision of other normal pregnancy, unspecified trimester (principal) | CPT/HCPCS: 81000; 87081 ==

== ENCOUNTER 2020-10-04 20:35 | Outpatient (CLI) | payer MEDICAID, SELFPAY ==
[2020-10-04] VITALS (13 sets, daily range): BP systolic 92–109; BP diastolic 54–67; PULSE 86–131; TEMP 36.1–36.3; BMI 34.7
[2020-10-04] MEDS: acetaminophen 500 mg Tablet 1000 MG PO (22:58)
--- NOTE | 2020-10-26 09:41 | PC.NURSE ---
Admission order placed by this nurse for the primary.
== END 2020-10-04 23:14 | disposition home or self-care (01) ==
LOC: OPOB 20:41 → OBGYN 22:57
PROVIDERS: Visit Provider Obstetrics & Gynecology
DX: O26.899 Other specified pregnancy related conditions, unspecified trimester (principal); Z3A.00 Weeks of gestation of pregnancy not specified; R10.9 Unspecified abdominal pain
CPT/HCPCS: 59025; 99211

== ENCOUNTER → 2020-10-09 13:37 | Outpatient (BNVA) | payer MEDICAID, SELFPAY | PROVIDERS: Visit Provider Obstetrics & Gynecology | DX: O99.613 Diseases of the digestive system complicating pregnancy, third trimester (principal); K21.9 Gastro-esophageal reflux disease without esophagitis | CPT/HCPCS: 81000 ==

== ENCOUNTER 2020-10-14 21:22 | Outpatient (CLI) | payer BC, MEDICAID, SELFPAY ==
[2020-10-14] VITALS (31 sets, daily range): BP systolic 102; BP diastolic 65; PULSE 78–96; RESP 15; TEMP 36.4; O2SAT 97–100; BMI 35.8
[2020-10-14 22:43] LABS: Nitrazine Paper, PH Negative
[2020-10-14 23:44] LABS: Nitrazine Paper, PH Negative
[2020-10-15] VITALS (8 sets, daily range): BP systolic 109; BP diastolic 68; PULSE 85–92; TEMP 36.6; O2SAT 97–98
--- NOTE | 2020-10-15 00:30 | PC.NURSE ---
Discharge packet unable to print, RN at bedside all questions answered.
[2020-10-15 01:22] LABS: Nitrazine Paper, PH Negative
== END 2020-10-15 00:38 | disposition home or self-care (01) ==
LOC: OPOB 21:32 → OBGYN 21:35
PROVIDERS: Visit Provider Obstetrics & Gynecology
DX: O26.899 Other specified pregnancy related conditions, unspecified trimester (principal); Z3A.00 Weeks of gestation of pregnancy not specified; R10.9 Unspecified abdominal pain
CPT/HCPCS: 59025; 83986; 99211

== ENCOUNTER → 2020-10-16 13:24 | Outpatient (BNVA) | payer BC, MEDICAID, SELFPAY | PROVIDERS: Visit Provider Obstetrics & Gynecology | DX: O99.013 Anemia complicating pregnancy, third trimester (principal); O99.613 Diseases of the digestive system complicating pregnancy, third trimester; K21.9 Gastro-esophageal reflux disease without esophagitis; F41.8 Other specified anxiety disorders; Z30.2 Encounter for sterilization | CPT/HCPCS: 81000 ==

== ENCOUNTER 2020-10-19 17:26 | Outpatient (CLI) | payer BC, MEDICAID, SELFPAY ==
[2020-10-19 17:42] VITALS: BP 107/70; PULSE 111
[2020-10-19 17:48] VITALS: RESP 15; TEMP 36.2
[2020-10-19 18:00] VITALS: BMI 34.5
[2020-10-19 18:03] VITALS: BP 105/65; PULSE 91
[2020-10-19 18:11] LABS: Nitrazine Paper, PH Negative
[2020-10-19 18:23] VITALS: BP 99/64; PULSE 90
[2020-10-19 18:43] VITALS: BP 95/64; PULSE 88
[2020-10-19 18:50] VITALS: RESP 16
== END 2020-10-19 19:19 | disposition home or self-care (01) ==
LOC: OPOB 17:27 → OBGYN 17:38
PROVIDERS: Visit Provider Obstetrics & Gynecology
DX: O26.899 Other specified pregnancy related conditions, unspecified trimester (principal); Z3A.00 Weeks of gestation of pregnancy not specified; M54.5 Low back pain
CPT/HCPCS: 83986; 87635; 99211

== ENCOUNTER 2020-10-23 21:12 | Inpatient (IN) | payer BC, SELFPAY ==
[2020-10-23] VITALS (35 sets, daily range): BP systolic 95–119; BP diastolic 57–73; PULSE 78–110; TEMP 36.3; O2SAT 97–100; BMI 34.7
[2020-10-23] MEDS: dextrose 5%-sod chloride 0.9% 1,000 ML 999 ML IV (22:29)
[2020-10-23 22:59] LABS: Basophils % 0.3 %; Eosinophils # 0.1 10^3/uL (0.0-0.8); Eosinophils % 0.7 %; Hematocrit 33.5 % (37.0-47.0); Hemoglobin 10.7 g/dL (11.5-15.3); Lymphocytes # 1.3 10^3/uL (0.8-4.8); Lymphocytes % 18.7 %; Mean Corpuscular HGB Conc 31.9 g/dL (30.0-36.0); Mean Corpuscular Hemoglobin 26.7 pg (28.0-34.0); Mean Corpuscular Volume 83.5 fL (81-99); Mean Platelet Volume 11.3 fL (7.4-10.4); Monocytes # 0.4 10^3/uL (0.2-0.9); Monocytes % 5.6 %; Neutrophils # 5.29 10^3/uL (1.8-7.7); Neutrophils % 74.4 %; Nucleated Red Blood Cells % 0 %; Platelet Count 225 10^3/cmm (130-400); Red Blood Count 4.01 10^6/uL (4.1-5.3); White Blood Count 7.1 10^3/uL (4.0-10.0)
[2020-10-23] MEDS: alum-mag-hydroxide-sime 30 mL UDC PO (23:17)
[2020-10-24] VITALS (118 sets, daily range): BP systolic 85–167; BP diastolic 53–82; PULSE 65–111; RESP 16–17; TEMP 36.2; O2SAT 90–100
[2020-10-24] MEDS: oxytocin 30 UNIT/500 ML BAG IV (02:00)
[2020-10-24] MEDS: alum-mag-hydroxide-sime 30 mL UDC PO (05:25)
[2020-10-24] MEDS: lactated ringers 1,000 ML 999 ML IV (05:35)
--- NOTE | 2020-10-24 06:40 | P.ANESASSM_ITS ---
Documented by User: Cuate Partida CRNA 10/24/20 06:42 Pre-Anesthetic Assessment Pre-Anesthetic Assessment: Height/Weight: Height 1.57 m Weight 86.183 kg Temp Pulse BP Pulse Ox 97.2 F L 70 117/75 98 10/24/20 03:50 10/24/20 06:25 10/24/20 06:25 10/24/20 01:06 Preop Diagnosis: labor pains Proposed Procedure: epidural Social: Social History: No alcohol and No tobacco Exam: Pre-Anes Outpt Exam: alert, oriented x 3, clear to auscultation bilaterally and regular rate & rhythm Airway: Submandibular: WNL Cervical ROM: WNL MP: 2 Dentition: Full Pulmonary: Pulmonary: None reported CV/HEM: CV/HEM: Anemia : : None reported Hepatic: Hepatic: None reported GI: GI: GERD Musc/skel: Musc/skel: None reported Neuropsych: Neuropsych: Anxiety, Depression and GOETZ Anesthetic Plan: Anesthesia: Regional (specify below) Risk of > 500 ml bl ood loss (7ml/kg in children): No Meds/Allergies Current Medications: Current Medications Generic Name Dose Route Start Last Admin Trade Name Freq PRN Reason Stop Dose Admin Al Hydrox/Mg Raymond x/Simethicone 30 ml 10/23/20 21:51 10/24/20 05:25 Aelw-Itj-Kjwakba de-Ab 30 Ml Udc PO 30 ml Q4H PRN Administration INDIGESTION Dextrose/Sodium Ch loride 1,000 mls @ 125 m ls/hr 10/23/20 22:00 10/24/20 03:15 Dextrose 5%-Sod Chloride 0.9% IV Infused .Q8H PARTHA Infusion Oxytocin 30 unit in 500 ml s @ 1 mls/hr 10/24/20 01:45 10/24/20 02:00 Pitocin IV 1 milliunit/min .Q24H PARTHA 1 mls/hr Administration Protocol 1 MILLIUNIT/MIN PFSH Anesthesia PFSH: Medical History Anxiety with depression Reports having problems with anxiety and depression since at least the age of 11. Reports trying lots of medication which has never worked. Most recently in October 2019 was on BuSpar for about 2 months and stopped as it did not help her. Chronic headaches Reports having chronic headaches since the age of 5. Has been evaluated and all evaluation has been negative. She takes ibuprofen and Tylenol as needed for headaches. No pertinent past medical history Denies diabetes, asthma, hypertension, seizures, DVT/PE. PCP: Tierra Fagan [facility] Surgical History [place] of [place] [facility] [place] of dilatation and curettage 2009 [address] a [address] Archie Abel [place] [facility] [place] History of laparoscopy 02/16/2010---> Dr. Genao for pelvic pain-normal uterus ovaries and tubes. No endometriosis or scarring noted.(Operative report scanned) S/P wisdom tooth extraction Family History Mother Family history of thyroid problem Diabetes Hypertension Heart disease Thyroid condition Grandmother Breast cancer Paternal grandmother, diagnosed in her late 60s Colon cancer Maternal grandmother, age at diagnosis unknown Diabetes Maternal grandmother Family/Other Breast cancer Paternal aunt, diagnosed in her 40s Ovarian cancer Maternal aunt, age at diagnosis unknown Diabetes Paternal aunt Father Diabetes Hypertension Stroke Denies family history of Hyperlipidemia Uterine cancer Social History History of recent travel: No Female Reproductive History: Date of last menstrual period: 01/06/20 : 8 Data Anesthesia CBC & Chem 7: 10/25/20 02:40 Other Labs: Laboratory Results - last 48 hr 10/23/20 10/23/20 22:11 22:11 WBC 7.1 RBC 4.01 L Hgb 10.7 L Hct 33.5 L MCV 83.5 MCH 26.7 L MCHC 31.9 RDW 15.0 Plt Count 225 MPV 11.3 H Neut % (Auto) 74.4 Lymph % (Auto) 18.7 [place] % (Auto) 5.6 Eos % (Auto) 0.7 Baso % (Auto) 0.3 Neut # (Auto) 5.29 Lymph # (Auto) 1.3 [place] # (Auto) 0.4 Eos # (Auto) 0.1 Baso # (Auto) 0.0 Nucleated RBC % (auto) 0 Nucleated RBCs # 0.0 Blood Type A Positive Rho(D) Type Positive Antibody Screen Negative Cardiac Studies: No Data to Display Documented by User: Shirley Lori 10/25/20 06:37 PFSH Anesthesia PFSH: Medical History Anxiety with depression Reports having problems with anxiety and depression since at least the age of 11. Reports trying lots of medication which has never worked. Most recently in October 2019 was on BuSpar for about 2 months and stopped as it did not help her. Chronic headaches Reports having chronic headaches since the age of 5. Has been evaluated and all evaluation has been negative. She takes ibuprofen and Tylenol as needed for headaches. No pertinent past medical history Denies diabetes, asthma, hypertension, seizures, DVT/PE. PCP: Tierra Fagan [facility] Surgical History History of appendectomy [place] [facility] [place] History of dilatation and curettage 2009 [address] a [address] Archie Abel [place] [facility] [place] History of laparoscopy 02/16/2010---> Dr. Genao for pelvic pain-normal uterus ovaries and tubes. No endometriosis or scarring noted.(Operative report scanned) S/P wisdom tooth extraction Family History Mother Family history of thyroid problem Diabetes Hypertension Heart disease Thyroid condition Grandmother Breast cancer Paternal grandmother, diagnosed in her late 60s Colon cancer Maternal grandmother, age at diagnosis unknown Diabetes Maternal grandmother Family/Other Breast cancer Paternal aunt, diagnosed in her 40s Ovarian cancer Maternal aunt, age at diagnosis unknown Diabetes Paternal aunt Father Diabetes Hypertension Stroke Denies family history of Hyperlipidemia Uterine cancer Social History History of recent travel: No Data Anesthesia CBC & Chem 7: 10/25/20 02:40 Cardiac Studies: No Data to Display
--- NOTE | 2020-10-24 07:46 | P.ANES_ITS ---
Anesthesia Procedures Procedure/Date: 10/24/20 epidural Procedure Narrative: epidural complete, bolus given, epidural pump initiated with SENIOR BUYER PLANNER education given, vitals taken during procedure using OBIX system and satisfactory throughout, patient admits to decrease pain, report of procedure to OB RN Epidural: Time Out Performed: Yes Consents Signed: Procedure Consent Consent: requested by attending/covering physician, from patient, risks and benefits reviewed and patient agrees to proceed Lumbar Level: L3-L4 Epidural position: sitting Epidural procedure: sterile prep of area, 1% lidocaine to numb the area (3 mL), 18 g needle, negative for paresthesia passed, neg for paresthesia, test dose given, 1.5% xylocaine 1:200k epi (5 mL), 0.2% Ropivacaine bolus ml (5 mL), placed PCEA, no systemic response, sterile dressing applied, L.U.D. no apparent complications and 0.2% Ropiavacaine @ mls/hr (13 mL/hr)
[2020-10-24] MEDS: fentaNYL 50 mcg/mL INJ 2mL 25 MCG IVP ×2 (11:36→13:20)
--- NOTE | 2020-10-24 11:53 | PC.NURSE ---
at bedside to re-evaluate epidural
--- NOTE | 2020-10-24 12:02 | ANES.PROC ---
Anesthesia Procedures Procedure/Date: 10/24/20 Other Information: Called to OB for patient complaint of pain. Patient states her bolus button provides no relief and it feels like she doesn't have an epidural, but she denotes some numbness in R leg. Offered patient opportunity to replace epidural, but she states, although she doesn't want to be in pain, she's scared and doesn't want to repeat the epidural. I increased her epidural rate to 15 cc/hr and instructed her to try laying on her back. She is aware that she can only rely on fentanyl for so long during her labor.
[2020-10-24] MEDS: lidocaine 2% INJ 20 mL INJECTION (14:14)
[2020-10-24] MEDS: miSOPROStol 200 mcg Tablet 800 MCG PR (14:15)
--- NOTE | 2020-10-24 14:26 | P.PCNOB_ITS ---
Delivery Note: Date of delivery: October 24, 2020 - PRE-DELIVERY DIAGNOSIS: 29-year-old 8 para 5-0-2-5 at 39 weeks and 5 days gestation GBS negative Elective induction Anemia on iron GERD controlled with medication Anxiety and depression-not on medication Multiparity desiring permanent sterilization POST-DELIVERY DIAGNOSIS: Vaginal delivery on 10/24/2020 Multiparity desiring permanent sterilization PROCEDURE: Vaginal delivery on 10/24/2020 ANESTHESIA: Epidural anesthesia, local anesthesia with 2% lidocaine DELIVERING PHYSICIAN: Kirt Hidalgo FACOG PRE-DELIVERY COURSE: Ms. Walker is a 29-year-old 8 para 5-0-2-5 at 39 weeks and 4 days who presented to labor and delivery at 9:30 PM on 10/23/2020 for scheduled elective induction of labor. Patient stated that she was very uncomfortable and desired elective induction and had been counseled about the risks benefits and alternatives. On initial evaluation she was noted to be 1 cm, 30% and -3 station, cephalic with a category 1 tracing. She was noted to initially have irregular contractions. She was admitted to labor and delivery and lab work done. Plan had been initially to start Cytotec however at midnight when it was time to place Cytotec she was noted to be magdi frequently and as a result she was observed for 2 hours and made no further cervical change. Her contractions were every 2 to 4 minutes and Pitocin was started for induction of labor. Pitocin was titrated to maximum of 15 mIU and with this she started to h ave regular contractions every 2 to 3 minutes and grew uncomfortable. Epidural was placed per her request and she was comfortable after this. Artificial rupture of membranes was performed at 8:40 AM with clear fluid at which time she was 4 cm, 50% and -2 station. tracing remained largely category 1 with occasional early decelerations which resolved with position change. She made good cervical change after this and was 5 cm at 1 PM, 8 cm at 1:45 PM and fully dilated at 1:54 PM and +2 station ready to push. DELIVERY NOTE: She was set up in lithotomy position and was pushing effectively. She was noted to be +3 station and continued pushing well. The head delivered in BRI position, nuchal cord x1 was present however it was too tight to be reduced. The shoulders and rest of the body followed with her next push and delivered through the nuchal cord without any difficulty. The baby's mouth and nose were suctioned and the baby was placed on the mother's belly. Once cord pulsations stopped the cord was clamped and cut. The placenta delivered spontaneously intact with membranes and was discarded. The fundus was noted to be firm and well contracted however the lower uterine segment was noted to be boggy and collected blood clots and patient did not tolerate bimanual massage very well. 100 mcg of Cytotec was placed per rectum and this did help tone of the lower uterine segment.. The vagina and cervix were inspected and no cervical or sulcal lacerations were noted. The perineum was intact except for a first-degree vaginal tear that was repaired by a [id number] suture with 3-0 Vicryl. Good reapproximation and hemostasis was achieved. Baby boy, Mustapha born at 2 PM on 10/24/2020 with 9/9, weighing 3770 g, 8 pounds 5 ounces, 21-3/4 inches long. Placenta was delivered spontaneously intact with membranes at 2:04 PM. Cotyledons were intact , centrally inserted umbilical cord with 3 vessels noted. Estimated blood loss 300 mL. Complications-none, both baby and mother were left to recovery in a stable condition -We discussed that a tubal ligation is a permanent procedure and that should she desire to have a reversal procedure the success rate of a reversal procedure is low. I also discussed the failure rate of tubal ligation is less than 1% and that should she find out she is after having the procedure, she needs to see an FILM PROCESS OPERATOR immediately as her risk of having an ectopic is higher. She also understands that the regret rate is higher when people to choose permanent sterilization at a younger age. We also discussed the other forms of reversible contraceptions including an IUD, patch, OCP, nexplanon, Depo-Provera. She understands that she has other options but she wants to have her tubes tied. We discussed the surgical procedure and the risks and benefits of surgery and a routine postoperative course, And all her and her 's questions were answered. -Surgical consent for tubal ligation was signed and surgery to be scheduled tomorrow on 10/25/2020. Coding Level of Care Code Acute Usability Architect for Mckenna Fwd History History History 8 Term 6 Miscarriages/Ectopic 2 0 Living Children 6 Other History: X 6 SAB X 2 1--->[10/07/2009] Male(Fredi) - 6#,12.5oz. 39 weeks. vaginal delivery no complications - [place] [facility] [place] Gen[place]. 2--->[04/23/2010] Missed . 12 weeks. Suction D&C. [facility] Abel. 3--->[12/19/2011] Female(Justice)- 6#,8.5oz. 38 weeks. vaginal delivery no complications - [place] [facility] [place] Goldstein. 4--->[01/06/2014] Female (Felicia)- 6#,15.5oz. 38-2/7wk. vaginal delivery no complications - [place] [facility] [place] Brun[place]. Was anemic during the and received 3 units of blood . 5--->[04/10/2016]Girl,(ziggynn) 7# 6--vaginal, epidural, 39 weeks, Delivered at [facility] in [place], [place] 6--->[04/2016] SAB; no complications; no intervention 7--->[08/05/2018] Boy(Ck), 7# 6--vaginal, epidural, 39 weeks, Delivered at [facility] in [place], [place] 8---> 10/24/2020---> elective induction at 39 weeks and 5 days, baby boy (Mustapha) weighing 8 pounds 5 ounces, vaginal delivery with an epidural [place] Hidalgo [place] [facility] [place] First-degree vaginal tear.
[2020-10-24] MEDS: ibuprofen 800 mg tablet PO ×2 (14:52→20:24)
[2020-10-24] MEDS: docusate sodium 100 mg Capsule PO (17:40)
--- NOTE | 2020-10-24 18:37 | PC.NURSE ---
Dr. Sandoval at patient bedside at 1153. While at bedside, Dr. Sandoval educated patient regarding her options for pain relief. Discussed giving patient fentanyl, redoing epidural placement and increasing ropivacaine dosage per hour. Patient and Dr. Sandoval decided to increase the ropivacaine dosage per hour. Dr. Sandoval verbalized the ropivacaine dosage to be increased to 15 ml/hour. Dr. Sandoval left the room without increasing the dosage, while the nurse was repositioning patient. After patient was repositioned, nurse left the room to inquire about the location of Dr. Sandoval. Nurse was informed that Dr. Sandoval had left the floor after coming out of the room. At 1202, Dr. Sandoval was called and confirmed orders she wanted the pump to be at 15 ml/hour. Nurse educated Dr. Sandoval that she is supposed to be the one to make changes to the epidural rate. Dr. Sandoval confirmed she wanted the rate to be at 15 ml/hour. Rate was increased from 13 ml/hour to 15 ml/hour at 1203, and was verified by Bernabe Mckeon RN.
[2020-10-24] MEDS: benzocaine-menthol 78 gm Canister 1 SPRAY TOPICAL (20:35)
[2020-10-24] MEDS: HYDROcodone-acetaminophen 5-325 mg Tablet PO (21:05)
[2020-10-25] VITALS (14 sets, daily range): BP systolic 102–135; BP diastolic 56–87; PULSE 60–80; RESP 16–26; TEMP 36.4–36.8; O2SAT 96–100
[2020-10-25 02:50] LABS: Hematocrit 30.6 % (37.0-47.0); Hemoglobin 9.8 g/dL (11.5-15.3); Mean Corpuscular Volume 84.3 fL (81-99); Mean Platelet Volume 10.9 fL (7.4-10.4); Platelet Count 223 10^3/cmm (130-400); Red Blood Count 3.63 10^6/uL (4.1-5.3); Red Cell Distribution Width 15.1 % (12.1-15.1); White Blood Count 7.4 10^3/uL (4.0-10.0)
[2020-10-25] MEDS: HYDROcodone-acetaminophen 5-325 mg Tablet PO ×3 (05:06→14:52)
--- NOTE | 2020-10-25 06:38 | ANES.PREANE2 ---
Pre-Anesthetic Assessment Pre-Anesthetic Assessment: Height/Weight: Height 1.57 m Weight 86.183 kg Temp Pulse Resp BP Pulse Ox 98.3 F 67 16 102/56 99 10/25/20 04:20 10/25/20 04:20 10/24/20 18:24 10/25/20 04:20 10/24/20 07:34 Preop Diagnosis: labor pains Proposed Procedure: Operation Date: 10/25/20 07:00 Proposed Procedures p Lap Fulg,Removal of Tubes Sterilization(Not Applicable) - Kirt Pressley MD Operation Date: 10/25/20 11:30 Proposed Procedures p Bilateral Tubal Ligation PPBTL(Not Applicable) - Kirt Pressley MD Familial anesthetic complications: None Social: Social History: No alcohol and No tobacco Exam: Pre-Anes Outpt Exam: alert, oriented x 3, clear to auscultation bilaterally and regular rate & rhythm Airway: Cervical ROM: WNL MP: 2 Dentition: Full Anesthetic Plan: ASA status: 2 Anesthesia: General Risk of > 500 ml blood loss (7ml/kg in children): No Meds/Allergies Current Medications: Current Medications Generic Name Dose Route Start Last Admin Trade Name Freq PRN Reason Stop Dose Admin Hydrocodone Bitart /Acetaminophen 1 - 2 tab 10/24/20 14:31 10/25/20 05:06 Hydrocodone-Acet aminophen 5-325 Mg Tablet PO 1 tab Q6H PRN Administration MODERATE TO SEVER E PAIN Benzocaine 1 spray 10/24/20 14:31 10/24/20 20:35 Benzocaine-Menth ol 78 Gm Canister TOPICAL 1 spray PRN PRN Administration PAIN Docusate Sodium 100 mg 10/24/20 18:00 10/24/20 17:40 Docusate Sodium 100 Mg Capsule PO 100 mg BID PARTHA Administration Ibuprofen 800 mg 10/24/20 15:00 10/24/20 20:24 Ibuprofen 800 Mg Tablet PO 800 mg TID PARTHA Administration PFSH Anesthesia PFSH: Medical History Anxiety with depression Reports having problems with anxiety and depression since at least the age of 11. Reports trying lots of medication which has never worked. Most recently in October 2019 was on BuSpar for about 2 months and stopped as it did not help her. Chronic headaches Reports having chronic headaches since the age of 5. Has been evaluated and all evaluation has been negative. She takes ibuprofen and Tylenol as needed for headaches. No pertinent past medical history Denies diabetes, asthma, hypertension, seizures, DVT/PE. PCP: Tierra Fagan [facility] Surgical History History of appendectomy 2011[place] [facility] [place] of dilatation and curettage 2009 [address] a [address] Archie Abel [place] [facility] [place] History of laparoscopy 02/16/2010---> Dr. Genao for pelvic pain-normal uterus ovaries and tubes. No endometriosis or scarring noted.(Operative report scanned) S/P wisdom tooth extraction Family History Mother Family history of thyroid problem Diabetes Hypertension Heart disease Thyroid condition Grandmother Breast cancer Paternal grandmother, diagnosed in her late 60s Colon cancer Maternal grandmother, age at diagnosis unknown Diabetes Maternal grandmother Family/Other Breast cancer Paternal aunt, diagnosed in her 40s Ovarian cancer Maternal aunt, age at diagnosis unknown Diabetes Paternal aunt Father Diabetes Hypertension Stroke Denies family history of Hyperlipidemia Uterine cancer Social History History of recent travel: No Female Reproductive History: Date of last menstrual period: 01/06/20 : 8 Data Anesthesia CBC & Chem 7: 10/25/20 02:40 Other Labs: Laboratory Results - last 48 hr 10/23/20 10/23/20 10/25/20 22:11 22:11 02:40 WBC 7.1 7.4 RBC 4.01 L 3.63 L Hgb 10.7 L 9.8 L Hct 33.5 L 30.6 L MCV 83.5 84.3 MCH 26.7 L 27.0 L MCHC 31.9 32.0 RDW 15.0 15.1 Plt Count 225 223 MPV 11.3 H 10.9 H Neut % (Auto) 74.4 Lymph % (Auto) 18.7 [place] % (Auto) 5.6 Eos % (Auto) 0.7 Baso % (Auto) 0.3 Neut # (Auto) 5.29 Lymph # (Auto) 1.3 [place] # (Auto) 0.4 Eos # (Auto) 0.1 Baso # (Auto) 0.0 Nucleated RBC % (auto) 0 Nucleated RBCs # 0.0 Blood Type A Positive Rho(D) Type Positive Antibody Screen Negative Cardiac Studies: No Data to Display
[2020-10-25] MEDS: sodium chloride 0.9% 1,000 ML 30 ML IV (06:48)
--- NOTE | 2020-10-25 07:59 | PM.OP ---
Operative Report Date of procedure: October 25, 2020 OPERATIVE REPORT Date of surgery: 10/25/2020 Date of dictation: 10/25/2020 Preoperative diagnosis: 29-year-old 8 para 6-0-2-6, day 1 status post vaginal delivery, multiparity desiring permanent sterilization. Postoperative diagnosis/findings: Normal tubes bilaterally, Procedure: tubal ligation via modified Mclean method. Specimens removed/disposition of specimens: Segment of right and left fallopian tubes sent to pathology. Surgeon: Dr. Kirt Hidalgo assistant technician: chidi Diaz Anesthesia: General endotracheal tube anesthesia Estimated blood loss: Less than 25 ml Intravenous fluids: 500 mL of LR Urine output: 200 mL of clear urine via Gaona catheter at the end of procedure Medications: As per anesthesia records Complications: None, patient was extubated and taken to the recovery room in a stable condition. PROCEDURE: After consent was obtained, patient was taken to the operating room where she was placed under general endotracheal tube anesthesia without any difficulty. She was placed supine on the table and was prepped in a sterile fashion. A Gaona catheter was used to empty her bladder . She was then draped in a sterile fashion. 5 mL of local anesthetic was injected infraumbilically. An infraumbilical incision was made and the incision was carried down to the fascia using the scalpel. The umbilical plate was identified and grasped with Prieto and the fascia was followed down for about 3 cm away from the umbilical plate. The fascia was nicked in the middle with the scalpel and the incision was extended using alegria scissors. The peritoneum was identified and entered using Metzenbaum's after ensuring it was clear. Abdominal cavity was entered, no adhesions noted around the umbilicus. The patient was placed in Trendelenburg and tilted to the right and her left fallopian tube was identified, grasped with a Rosa and brought to the incision. The tube was then followed out to the fimbria. The [place] clamp was used to grasp the tube about 4 cm from the cornua. A 2 cm segment of the tube was double ligated with 2-0 suture in a modified Mclean method. This ligated segment of tube was excised and hemostasis was obtained using the Bovie. The tube was returned to the abdomen. The patient was then tilted to the left and the right fallopian tube was identified, grasped with a [place] and brought to the incision. A 3 cm segment of fallopian tube was excised in a similar fashion, hemostasis was obtained with Bovie and the tube was returned to the abdomen. The peritoneum and fascia were closed in a single layer using 0 Vicryl. The subcutaneous plane was closed with a [id number] suture 0 Vicryl and the skin was closed in a subcuticular fashion with a 4-0 Monocryl. The incision was dressed with Steri-Strips Telfa and a 2 x 2 and Tegaderm. The patient tolerated the procedure well sponge lap and needle counts were correct x2 and the patient was taken to the recovery room in a stable condition. Pre-op Diagnosis: labor pains
--- NOTE | 2020-10-25 08:40 | PC.NURSE ---
Pt back to room from surgery, complaints of pain upon arrival. This nurse reviewing orders to see whats available for pain.
--- NOTE | 2020-10-25 10:04 | ANE.PACU2 ---
Inpatient post-anesthesia follow up: Airway intact: Yes Vital signs: Temperature 97.6 F Pulse Rate 65 Respiratory Rate 18 Blood Pressure 118/68 Pulse Oximetry 96 Oxygen Delivery Me thod Room Air Oxygen Flow Rate 8 Fraction of Inspir ed Oxygen Hydration adequate: Yes Nausea and vomiting: No Pain level: 3 Mental status: Baseline Additional Comments: no signs of infection at epidural site, no urinary retention or headaches, no residual numbess/weakness in legs
[2020-10-25] MEDS: prenatal vitamin Capsule 1 CAP PO (11:20)
[2020-10-25] MEDS: ibuprofen 800 mg tablet PO ×2 (11:20→17:35)
[2020-10-25] MEDS: docusate sodium 100 mg Capsule PO ×2 (11:20→17:35)
[2020-10-25] MEDS: ondansetron 2 mg/ML SDV 2 mL 4 MG IVP (12:07)
[2020-10-25] MEDS: benzocaine-menthol 78 gm Canister 1 SPRAY TOPICAL (17:35)
--- NOTE | 2020-10-25 18:32 | ANE.PACU2 ---
Inpatient post-anesthesia follow up: Airway intact: Yes Vital signs: Temperature 97.6 F Pulse Rate 72 Respiratory Rate 18 Blood Pressure 122/77 Pulse Oximetry 96 Oxygen Delivery Me thod Room Air Oxygen Flow Rate 8 Fraction of Inspir ed Oxygen Hydration adequate: Yes Nausea and vomiting: No Pain level: 5 Mental status: Baseline
--- NOTE | 2020-10-25 18:36 | P.DS_ITS ---
Discharge Providers Date of Admission: 10/24/20 13:25 Date of Discharge: October 25, 2020 Attending Provider at Admission: Kirt Pressley MD Attending Provider at Discharge: Kirt Pressley MD PRE-DELIVERY DIAGNOSIS: 29-year-old 8 para 5-0-2-5 at 39 weeks and 5 days gestation GBS negative Elective induction Anemia on iron GERD controlled with medication Anxiety and depression-not on medication Multiparity desiring permanent sterilization POST-DELIVERY DIAGNOSIS: Vaginal delivery on 10/24/2020 Multiparity desiring permanent sterilization PROCEDURE: Vaginal delivery on 10/24/2020 ANESTHESIA: Epidural anesthesia, local anesthesia with 2% lidocaine DELIVERING PHYSICIAN: Kirt Hidalgo FACOG PRE-DELIVERY COURSE: Ms. Sutherland is a 29-year-old 8 para 5-0-2-5 at 39 weeks and 4 days who presented to labor and delivery at 9:30 PM on 10/23/2020 for scheduled elective induction of labor. Patient stated that she was very uncomfortable and desired elective induction and had been counseled about the risks benefits and alternatives. On initial evaluation she was noted to be 1 cm, 30% and -3 station, cephalic with a category 1 tracing. She was noted to initially have irregular contractions. She was admitted to labor and delivery and lab work done. Plan had been initially to start Cytotec however at midnight when it was time to place Cytotec she was noted to be magdi frequently and as a result she was observed for 2 hours and made no further cervical change. Her contractions were every 2 to 4 minutes and Pitocin was started for induction of labor. Pitocin was titrated to maximum of 15 mIU and with this she started to have regular contractions every 2 to 3 minutes and grew uncomfortable. Epidural was placed per her request and she was comfortable after this. Artificial rupture of membranes was performed at 8:40 AM with clear fluid at which time she was 4 cm, 50% and -2 station. tracing remained largely category 1 with occasional early decelerations which resolved with position change. She made good cervical change after this and was 5 cm at 1 PM, 8 cm at 1:45 PM and fully dilated at 1:54 PM and +2 station ready to push. DELIVERY NOTE: She was set up in lithotomy position and was pushing effectively. She was noted to be +3 station and continued pushing well. The head delivered in BRI position, nuchal cord x1 was present however it was too tight to be reduced. The shoulders and rest of the body followed with her next push and delivered through the nuchal cord without any difficulty. The baby's mouth and nose were suctioned and the baby was placed on the mother's belly. Once cord pulsations stopped the cord was clamped and cut. The placenta delivered spontaneously intact with membranes and was discarded. The fundus was noted to be firm and well contracted however the lower uterine segment was noted to be boggy and collected blood clots and patient did not tolerate bimanual massage very well. 100 mcg of Cytotec was placed per rectum and this did help tone of the lower uterine segment.. The vagina and cervix were inspected and no cervical or sulcal lacerations were noted. The perineum was intact except for a first-degree vaginal tear that was repaired by a [id number] suture with 3-0 Vicryl. Good reapproximation and hemostasis was achieved. Baby boyMustapha born at 2 PM on 10/24/2020 with 9/9, weighing 3770 g, 8 pounds 5 ounces, 21-3/4 inches long. Placenta was delivered spontaneously intact with membranes at 2:04 PM. Cotyledons were intact , centrally inserted umbilical cord with 3 vessels noted. Estimated blood loss 300 mL. Complications-none, both baby and mother were left to recovery in a stable condition HOSPITAL COURSE: She underwent an uncomplicated vaginal delivery on 10/24/2020. She did well on day 0 and was ambulating well, tolerating regular diet, voiding freely, passing flatus. She was bottle-feeding without difficulty and bonding well with her son. Circumcision was performed on day of life 1 per her request without any difficulty.. Pain was well-controlled with by mouth pain medication. She denied nausea, vomiting, fever, chills, shortness of breath, leg pain. She had moderate vaginal bleeding. On day # 1 she underwent bilateral tubal ligation on 10/25/2020 without any difficulty. She continued to do well with stable vital signs and stable hemoglobin at 9.8. She was discharged home on day 1 in a stable condition, as she desired early discharge and was recovering well postoperatively.. Warning signs for endometritis, mastitis, DVT/PE were reviewed with her. Post delivery activity restrictions were also reviewed with her at all her questions were answered to her sat isfaction. Underwent sterilization for contraception prior to discharge. EXAM AT DISCHARGE: Gen.: No acute distress Heart: S1-S2 heard, regular rate and rhythm Lungs: Clear to auscultation bilaterally Abdomen: Soft, fundus firm below umbilicus, tenderness around incision. Incision: Clean dry and intact with Steri-Strips. Legs: No calf tenderness, trace bilateral pedal edema. CONDITION AT DISCHARGE: Stable Reason for Visit Reason for Visit: induction Physical Exam Urinary Catheter Management^: Gaona: Cath Placed During This Visit: yes, but has since been removed by the nurse Reason for Continuing Indwelling Catheter: Accurate Measurement of Urinary Output in Critically Ill Patients Urinary Catheter Date of Insertion: 10/24/20 Urinary Catheter Time of Insertion: 08:10 Date Urinary Catheter Removed: 10/25/20 Time Urinary Catheter Discontinued: 07:50 Discharge Data Data Completed and Pending: Pending at discharge Category Date Time Status Pathology: Surgic al [PTH] Routine Pth 10/25/20 09:04 Received Labs from last 24 hours 10/25/20 02:40 WBC 7.4 RBC 3.63 L Hgb 9.8 L Hct 30.6 L MCV 84.3 MCH 27.0 L MCHC 32.0 RDW 15.1 Plt Count 223 MPV 10.9 H Vitals: Last Vital Signs Temp 97.6 F 10/25/20 08:25 Pulse 72 10/25/20 15:24 Resp 18 10/25/20 08:25 BP 122/77 10/25/20 15:24 Pulse Ox 96 10/25/20 08:25 Discharge Plan Discharge Patient Disposition: Home Condition: Stable Prescriptions: New ibuprofen 800 mg tablet 800 mg PO Q8H Qty: 30 RF: 0 hydrocodone-acetaminophen 5-325 mg tablet 1 tab PO Q6H Qty: 25 RF: 0 docusate sodium 100 mg Capsule 100 mg PO BID PRN (Reason: constipation) Qty: 30 RF: 0 Continued omeprazole 20 mg capsule,delayed release(DR/EC) 20 mg PO DAILY 30 Days Qty: 30 RF: 4 Vitamin Plus Low Iron 27 mg iron- 1 mg tablet 1 tab PO DAILY RF: 0 Zyrtec 10 mg capsule 10 mg PO BID Qty: 30 RF: 0 acetaminophen [Tylenol Extra Strength] 500 mg Tablet 1,000 mg PO PRN RF: 0 Discharge Orders: Discharge Order (Routine); Ordered 10/25/20 Ordered By: Kirt Pressley Referrals: Kirt Pressley MD [Physician] - (2 week incision change and 6 week pp visit) Patient Instructions: Pre-eclampsia and Eclampsia (DC), Bleeding (DC), OB WHC, OB Discharge Report, OB Food/Drug Interaction Guide, OB Home Care, OB Proud Parent Packet Activity Restrictions/Additional Instructions: no heavy lifitn x 6 weeks and pelvic rest x 6 weeks Discharge Attestations Time Spent in Discharge Care*: greater than 30 min Quality Metrics Clinical Quality Measures During this hospital stay, did patient experience: None Coding Level of Care Code Acute Supervisor Offset Plate Preparation for Mckenna Robles
== END 2020-10-25 19:30 | disposition home or self-care (01) | DRG 798 ==
PROVIDERS: Admitting Provider Obstetrics & Gynecology; Visit Provider Obstetrics & Gynecology
PROC: 0U574ZZ Destruction of Bilateral Fallopian Tubes, Percutaneous Endoscopic Approach (ICD-10-PCS; CPT 58605; principal; 2020-10-25 07:00)
DX: O69.2XX0 Labor and delivery complicated by other cord entanglement, with compression, not applicable or unspecified (principal); Z37.0 Single live birth; O99.02 Anemia complicating childbirth; D50.9 Iron deficiency anemia, unspecified; O99.344 Other mental disorders complicating childbirth; F41.8 Other specified anxiety disorders; O70.0 First degree perineal laceration during delivery; Z3A.39 39 weeks gestation of pregnancy; Z30.2 Encounter for sterilization; O75.89 Other specified complications of labor and delivery; K21.9 Gastro-esophageal reflux disease without esophagitis
CPT/HCPCS: 12345; 36415; 51702; 59409; 81000; 85025; 85027; 86850; 86900; 88302; G0378; G0379; J1100; J1885; J2405; J2704; J2710; J2795; J3010; J3490; J7030

== ENCOUNTER 2020-12-15 17:18 | Emergency (ER) | payer BC, MEDICAID, SELFPAY ==
--- NOTE | 2020-12-15 17:19 | W.ED.DENTAL ---
HPI - Dental/Oral General: Chief complaint: Dental/Oral Stated complaint: TOOTH ACHE Time Seen by Provider: 12/15/20 17:19 Source: patient Mode of arrival: ambulatory Limitations: no limitations History of Present Illness: HPI Narrative: Patient is a nice 30-year-old female who presents to ED today with complaint of dental pain. Patient tells me she has had issues with the areas where her third molars were. She states she had them extracted several years ago and feels like they left a hole in my gums . She states sometimes her pain will flareup but normally will subside on its own. She has not noticed any facial swelling. She is not having any trouble eating or drinking or controlling secretions. MD Complaint: tooth pain Teeth map: 1. 2. Onset (ago): day(s) Duration: constant Severity: moderate Relieving factors: nothing Exacerbating factors: nothing Associated symptoms: Reports no associated symptoms; Denies ear or mastoid pain, fever(s) or odynophagia Treatment prior to arrival: oral analgesic Review of Systems Const: Denies: fever(s) or chills Eyes: Denies: change in vision ENMT: Reports: dental pain; Denies: odynophagia, swelling of lips/tongue, oral sores, bleeding gums, ear or mastoid pain or nasal congestion Card: Denies: chest pain Resp: Denies: dyspnea GI: Denies: nausea or vomiting Musc: Denies: neck pain Neuro: Denies: headache(s) [facility] ED PFSH: Medical History (Updated 12/15/20 @ 17:41 by COURTNEY Alvarado) Anxiety with depression Reports having problems with anxiety and depression since at least the age of 11. Reports trying lots of medication which has never worked. Most recently in October 2019 was on BuSpar for about 2 months and stopped as it did not help her. Chronic headaches Reports having chronic headaches since the age of 5. Has been evaluated and all evaluation has been negative. She takes ibuprofen and Tylenol as needed for headaches. No pertinent past medical history Denies diabetes, asthma, hypertension, seizures, DVT/PE. PCP: Tierra Fagan [facility] Surgical History (Updated 11/07/20 @ 14:49 by Kirt Pressley MD) History of appendectomy 2011-laparoscopic procedure at [facility] [place] History of dilatation and curettage 2009 [address] a [address] Archie Abel at [facility] [place] History of laparoscopy 02/16/2010---> Dr. Genao for pelvic pain-normal uterus ovaries and tubes. No endometriosis or scarring noted.(Operative report scanned) S/P wisdom tooth extraction Status post tubal ligation 10/25/2020--- tubal ligation via umbilicus via modified [place] method performed by Dr. Hidalgo at [facility] [place]. Pathology confirmed fallopian tubes with benign pathology. Family History Mother Family history of thyroid problem Diabetes Hypertension Heart disease Thyroid condition Grandmother Breast cancer Paternal grandmother, diagnosed in her late 60s Colon cancer Maternal grandmother, age at diagnosis unknown Diabetes Maternal grandmother Family/Other Breast cancer Paternal aunt, diagnosed in her 40s Ovarian cancer Maternal aunt, age at diagnosis unknown Diabetes Paternal aunt Father Diabetes Hypertension Stroke Denies family history of Hyperlipidemia Uterine cancer Social History History of recent travel: No Female Reproductive History: Date of last menstrual period: 01/06/20 Physical Exam Const: COMMON NORMALS: no acute distress, average body habitus, patient oriented x3, no limitations, healthy appearing, alert and well nourished GENERAL APPEARANCE: cooperative ORIENTATION/CONSCIOUSNESS: Yes awake, Yes oriented to person, Yes oriented to place and Yes oriented to time HENMT: COMMON NORMALS: normocephalic, atraumatic, hearing grossly normal bilaterally, external ears normal, EAC's normal, TM's normal bilaterally, Normal external nose present, Normal nasal mucous membranes and turbinates present, moist oral mucous membranes, oropharynx normal and gingiva normal HEAD & SCALP: normal to inspection, normocephalic and atraumatic FACE & SINUS: normal facial exam and sinuses nontender NOSE: Normal external nose present and Normal nasal mucous membranes and turbinates present EXTERNAL EAR: Yes external ears normal EXTERNAL AUDITORY CANAL: EAC's normal TYMPANIC MEMBRANE: TM's normal bilaterally MOUTH: Normal oral and palatal mucosa present, lip normal and tongue normal TEETH & GINGIVA: Yes fair dentition THROAT: posterior oropharynx normal, tonsils normal and uvula midline OTHER: tenderness of upper/lower second molars; gingiva looks normal; location of 3rd molars look well healed; no intraoral swelling/abscess noted Neck/C-Spine: COMMON NORMALS: no lymphadenopathy Neuro: COMMON NORMALS: patient oriented x3 SENSORIUM/ORIENTATION: Yes alert, Yes oriented to person, Yes oriented to place and Yes oriented to time Course Vital Signs: Vital signs: Vital Signs Temperature 98.2 F 12/15/20 17:29 Pulse Rate 87 12/15/20 17:29 Respiratory Rate 16 12/15/20 17:29 Blood Pressure 117/81 12/15/20 17:29 Pulse Oximetry 100 12/15/20 17:29 MDM - Dental/Oral MDM Narrative: Medical decision making narrative: pt is approximately 2 mo -she states she is not Discharge Plan Discharge Patient Disposition: Home Clinical Impression: Pain, dental Condition: Stable Prescriptions: New penicillin V potassium 500 mg tablet 500 mg PO Q8H 7 Days Qty: 21 RF: 0 acetaminophen-codeine 300-30 mg tablet 1 tab PO Q6H PRN (Reason: pain) Qty: 14 RF: 0 No Action Vitamin Plus Low Iron 27 mg iron- 1 mg tablet 1 tab PO DAILY RF: 0 Zyrtec 10 mg capsule 10 mg PO BID Qty: 30 RF: 0 ibuprofen 800 mg tablet 800 mg PO Q8H Qty: 30 RF: 0 docusate sodium 100 mg Capsule 100 mg PO BID PRN (Reason: constipation) Qty: 30 RF: 0 Discharge Orders: Discharge ED (Routine); Ordered 12/15/20 Ordered By: Sun Melgar Patient Instructions: Toothache (ED), Opioid Safety Activity Restrictions/Additional Instructions: [facility] is committed to fighting the nationwide opiate epidemic. We are providing ALL patients with information regarding opiate safety. If you received opiate pain medication during your stay or if you received a prescription for opiate pain medication-please review this handout. If not, you may disregard. Thank you. Coding Level of Care Code ED Broiler Manager for Mckenna Robles
[2020-12-15 17:29] VITALS: BP 117/81; PULSE 87; RESP 16; TEMP 36.8; O2SAT 100; BMI 32.9
[2020-12-15] MEDS: ketorolac 60 mg/2 mL INJ IM (17:50)
== END 2020-12-15 17:53 | disposition home or self-care (01) ==
PROVIDERS: Emergency Provider Physician Assistant
DX: K08.89 Other specified disorders of teeth and supporting structures (principal)
CPT/HCPCS: 96372; 99283; J1885

== ENCOUNTER 2021-03-18 14:34 | Emergency (ER) | payer BC, MEDICAID, SELFPAY ==
[2021-03-18 15:32] VITALS: BP 134/97; PULSE 85; RESP 16; TEMP 36.6; O2SAT 98; BMI 32.9
--- NOTE | 2021-03-18 15:43 | ED_ITS ---
HPI - Dental/Oral General: Chief complaint: Dental/Oral Stated complaint: dental pain Time Seen by Provider: 03/18/21 15:43 Source: patient Mode of arrival: ambulatory Limitations: no limitations History of Present Illness: HPI Narrative: Patient is a nice 30-year-old female who presents to ED today with complaints of diffuse right-sided dental pain over the past several days. Patient has tried [id number] Tylenol/Ibuprofen/Orajel/Anbesol all without relief. Patient tells me she has a known broken upper tooth that could be the source of her discomfort. She has not noticed any facial or neck swelling. No fevers. MD Complaint: tooth pain Onset (ago): day(s) Duration: constant Severity: severe Severity scale (1-10): 10 Relieving factors: nothing Exacerbating factors: nothing Context: history of dental caries Associated symptoms: Reports no associated symptoms; Denies ear or mastoid pain, fever(s) or odynophagia Treatment prior to arrival: topical analgesic and oral analgesic Review of Systems Const: Denies: fever(s), chills, body aches, fatigue or malaise Eyes: Denies: change in vision, blurry vision, eye discomfort, eye discharge, floaters or seeing flashes ENMT: Reports: dental pain; Denies: throat pain, uvular edema, enlarged tonsils, odynophagia, hoarseness, mouth pain, swelling of lips/tongue, oral sores, bleeding gums, dry mouth or ear or mastoid pain Card: Denies: chest pain Resp: Denies: dyspnea GI: Denies: nausea or vomiting Musc: Denies: neck pain Skin/Breast: Denies: rash Neuro: Denies: headache(s) PFS ED PFSH: Medical History (Updated 03/18/21 @ 16:14 by COURTNEY Alvarado) Anxiety with depression Reports having problems with anxiety and depression since at least the age of 11. Reports trying lots of medication which has never worked. Most recently in October 2019 was on BuSpar for about 2 months and stopped as it did not help her. Chronic headaches Reports having chronic headaches since the age of 5. Has been evaluated and all evaluation has been negative. She takes ibuprofen and Tylenol as needed for headaches. No pertinent past medical history Denies diabetes, asthma, hypertension, seizures, DVT/PE. PCP: Tierra Fagan [facility] Surgical History (Updated 11/07/20 @ 14:49 by Kirt Pressley MD) History of appendectomy 2011[place] [facility] [place] History of dilatation and curettage [address] a [address] Archie Abel [place] [facility] [place] History of laparoscopy 02/16/2010---> Dr. Genao for pelvic pain-normal uterus ovaries and tubes. No endometriosis or scarring noted.(Operative report scanned) S/P wisdom tooth extraction Status post tubal ligation 10/25/2020--- tubal ligation via umbilicus via modified [place] met hod performed by Dr. Hidalgo at [facility] [place]. Pathology confirmed fallopian tubes with benign pathology. Family History Mother Family history of thyroid problem Diabetes Hypertension Heart disease Thyroid condition Grandmother Breast cancer Paternal grandmother, diagnosed in her late 60s Colon cancer Maternal grandmother, age at diagnosis unknown Diabetes Maternal grandmother Family/Other Breast cancer Paternal aunt, diagnosed in her 40s Ovarian cancer Maternal aunt, age at diagnosis unknown Diabetes Paternal aunt Father Diabetes Hypertension Stroke Denies family history of Hyperlipidemia Uterine cancer Social History History of recent travel: No Female Reproductive History: Date of last menstrual period: 11/30/20 Physical Exam Const: COMMON NORMALS: patient oriented x3, no limitations and alert GENERAL APPEARANCE: cooperative and in distress (appears uncomfortable secondary to pain) NUTRITIONAL APPEARANCE: overweight ORIENTATION/CONSCIOUSNESS: Yes awake HENMT: COMMON NORMALS: normocephalic, atraumatic, hearing grossly normal bilaterally, external ears normal, EAC's normal, TM's normal bilaterally, Normal external nose present, Normal nasal mucous membranes and turbinates present, moist oral mucous membranes, oropharynx normal and gingiva normal HEAD & SCALP: normal to inspection, normocephalic and atraumatic FACE & SINUS: normal facial exam and sinuses nontender NOSE: Normal external nose present and Normal nasal mucous membranes and turbinates present EXTERNAL EAR: Yes external ears normal EXTERNAL AUDITORY CANAL: EAC's normal TYMPANIC MEMBRANE: TM's normal bilaterally TEETH & GINGIVA: Yes fair dentition TEETH & GINGIVA IMAGES: 1. cracked/broken molar; gingival swelling; no abscess THROAT: posterior oropharynx normal, tonsils normal and uvula midline; no uvular edema Neck/C-Spine: COMMON NORMALS: no lymphadenopathy GENERAL: No anterior neck swelling and No submandibular swelling Resp: COMMON NORMALS: normal respiratory effort Neuro: COMMON NORMALS: patient oriented x3 SENSORIUM/ORIENTATION: Yes alert Course Vital Signs: Vital signs: Vital Signs Temperature 98 F 03/18/21 15:32 Pulse Rate 85 03/18/21 15:32 Respiratory Rate 16 03/18/21 15:32 Blood Pressure 134/97 03/18/21 15:32 Pulse Oximetry 98 03/18/21 15:32 Discharge Plan Discharge Patient Disposition: Home Clinical Impression: Toothache Fracture of tooth Qualifiers: Encounter type: initial encounter Fracture type: closed Qualified Code(s): S02.5XXA - Fracture of tooth (traumatic), initial encounter for closed fracture Condition: Stable Prescriptions: New clindamycin HCl 300 mg capsule 300 mg PO Q6H 7 Days Qty: 28 RF: 0 tramadol 50 mg tablet 50 mg PO Q6H PRN (Reason: pain) Qty: 8 RF: 0 Discontinued acetaminophen-codeine 300-30 mg tablet 1 tab PO Q6H PRN (Reason: pain) Qty: 14 RF: 0 No Action Vitamin Plus Low Iron 27 mg iron- 1 mg tablet 1 tab PO DAILY RF: 0 Zyrtec 10 mg capsule 10 mg PO BID Qty: 30 RF: 0 ibuprofen 800 mg tablet 800 mg PO Q8H Qty: 30 RF: 0 docusate sodium 100 mg Capsule 100 mg PO BID PRN (Reason: constipation) Qty: 30 RF: 0 Discharge Orders: Discharge ED (Routine); Ordered 03/18/21 Ordered By: Sun Melgar Patient Instructions: Dental Caries (ED), Toothache (ED), Opioid Safety Activity Restrictions/Additional Instructions: [facility] is committed to fighting the nationwide opiate epidemic. We are providing ALL patients with information regarding opiate safety. If you received opiate pain medication during your stay or if you received a prescription for opiate pain medication-please review this handout. If not, you may disregard. Thank you. I have provided you with a dental resource handout that you may call to hopefully find a dentist that takes adult Medicaid. Coding Level of Care Code ED Card Fixer for Mckenna Robles
== END 2021-03-18 16:26 | disposition home or self-care (01) ==
PROVIDERS: Emergency Provider Physician Assistant
DX: K08.89 Other specified disorders of teeth and supporting structures (principal); S02.5XXA Fracture of tooth (traumatic), initial encounter for closed fracture; X58.XXXA Exposure to other specified factors, initial encounter
CPT/HCPCS: 99282

== ENCOUNTER 2022-03-03 19:02 | Emergency (ER) | payer BC, MEDICAID, SELFPAY ==
[2022-03-03 19:08] VITALS: BP 126/82; PULSE 99; RESP 14; TEMP 37; O2SAT 100; BMI 32.9
--- NOTE | 2022-03-03 19:18 | XRR_ITS ---
PROCEDURE INFORMATION: Exam: XR Right Ankle Exam date and time: 03/03/2022 7:29 PM Age: 31 years old Clinical indication: Injury or trauma; Fall; Blunt trauma; Right; Injury details: Fell in a hole and twisted ankle. Pain and swelling to lateral side. TECHNIQUE: Imaging protocol: XR Right ankle. Views: 3 or more views. COMPARISON: No relevant prior studies available. FINDINGS: Bones/joints: Osseous structures are intact. Negative for fracture. Joint spaces are preserved. Soft tissues: Soft tissue swelling along the lateral ankle. XR/XR ankle RT min 3V* [id number] IMPRESSION: No acute findings.
--- NOTE | 2022-03-03 19:18 | XRR_ITS ---
PROCEDURE INFORMATION: Exam: XR Right Foot Exam date and time: 03/03/2022 7:29 PM Age: 31 years old Clinical indication: Injury or trauma; Fall; Blunt trauma; Foot; Right TECHNIQUE: Imaging protocol: XR Right foot. Views: 3 or more views. COMPARISON: No relevant prior studies available. FINDINGS: Bones/joints: Osseous structures are intact. Negative for fracture. Joint spaces are preserved. Soft tissues: Normal. XR/XR foot RT min 3V* [id number] IMPRESSION: No acute findings.
--- NOTE | 2022-03-03 19:19 | W.ED.LOWEXIN ---
HPI - Extremity Injury (Lower) General: Chief Complaint: Extremity Injury, Lower Stated Complaint: twisted R ankle Time Seen by Provider: 03/03/22 19:16 Source: patient Mode of arrival: ambulatory Limitations: no limitations History of Present Illness: Patient is a 31-year-old female presents to ED today with a complaint of a right ankle/foot injury. Patient tells me just prior to arrival while in her yard she accidentally stepped in a hole that her dog had dug. She states she inverted her right foot and ankle. Patient states she is not able to bear weight on the extremity secondary to pain. She has no other injuries or complaints at this time. MD complaint: ankle injury and foot injury Onset (ago): hour(s) Place: home Severity: moderate Relieving factors: immobilization Exacerbating factors: weight bearing and movement Context: fall (twisting) Associated symptoms: Reports inability to bear weight Other symptoms: none Review of Systems Musc: Reports: extremity pain (R ankle), extremity swelling (R foot), joint pain (R ankle) and joint swelling (R ankle); Denies: joint redness or joint warmth Neuro: Denies: numbness in extremities, weakness in extremities or sensory changes PFSH ED PFSH: Medical History Abdominal cramping Anxiety with depression Reports having problems with anxiety and depression since at least the age of 11. Reports trying lots of medication which has never worked. Most recently in October 2019 was on BuSpar for about 2 months and stopped as it did not help her. Chronic headaches Reports having chronic headaches since the age of 5. Has been evaluated and all evaluation has been negative. She takes ibuprofen and Tylenol as needed for headaches. Nausea in adult patient No pertinent past medical history Denies diabetes, asthma, hypertension, seizures, DVT/PE. PCP: Volodymyr [facility] Surgical History [place] of [place] [facility] [place] of dilatation and curettage [address] a [address] Archie Abel [place] [facility] [place] History of laparoscopy 02/16/2010---> Dr. Genao for pelvic pain-normal uterus ovaries and tubes. No endometriosis or scarring noted.(Operative report scanned) S/P wisdom tooth extraction Status post tubal ligation 10/25/2020--- tubal ligation via umbilicus via modified [place] method [place] Hidalgo [place] [facility] [place] Pathology confirmed fallopian tubes with benign pathology. Family History Mother Family history of thyroid problem Diabetes Hypertension Heart disease Thyroid condition Grandmother Breast cancer Paternal grandmother, diagnosed in her late 60s Colon cancer Maternal grandmother, age at diagnosis unknown Diabetes Maternal grandmother Family/Other Breast cancer Paternal aunt, diagnosed in her 40s Ovarian cancer Maternal aunt, age at diagnosis unknown Diabetes Paternal aunt Father Diabetes Hypertension Stroke Denies family history of Hyperlipidemia Uterine cancer Social History Smoking and tobacco status: never smoked History of recent travel: No Female Reproductive History: Date of last menstrual period: 11/30/20 Physical Exam Const: COMMON NORMALS: no acute distress, patient oriented x3, no limitations and alert Extremity: GENERAL: Yes normal exam except as noted RIGHT LOWER EXTREMITY: Yes foot & digits (TTP and swelling noted over lateral malleolus) Right ankle: Yes neurovascular exam (normal) and Yes foot & digits (TTP and mild swelling noted to lateral mid foot/5th metatarsal) Right foot and digits: Yes neurovascular exam (normal) Neuro: COMMON NORMALS: patient oriented x3 SENSORIUM/ORIENTATION: Yes alert Course Vital Signs: Vital signs: Vital Signs Temperature 98.6 F 03/03/22 19:08 Pulse Rate 99 03/03/22 19:08 Respiratory Rate 14 03/03/22 19:08 Blood Pressure 126/82 03/03/22 19:08 Pulse Oximetry 100 03/03/22 19:08 MDM - Extremity Injury (Lower) Medical Decision Making Personal interpretation of XRs normal. Will STEPAN wrap/crutches and instructions for weight bearing as tolerated and RICE therapy at home. Follow-up with PCP in 1 to 2 weeks for non-improvement. Discharge Plan Discharge Patient Disposition: Home Clinical Impression: Right ankle sprain Qualifiers: Encounter type: initial encounter Involved ligament of ankle: unspecified ligament Qualified Code(s): S93.401A - Sprain of unspecified ligament of right ankle, initial encounter Condition: Stable Prescriptions: No Action dicyclomine 20 mg tablet 20 mg PO .q6 Qty: 30 1RF ondansetron HCl 4 mg tablet 4 mg PO Q6H PRN (Reason: nausea and vomiting) Qty: 30 0RF Discharge Orders: Discharge ED (Routine); Ordered 03/03/22 Ordered By: Sun Melgar Patient Instructions: Ankle Sprain (DC), RICE Therapy Coding Level of Care Code ED Rayon Winder for Chg Fwd Exam Expanded Problem Focused
== END 2022-03-03 19:50 | disposition home or self-care (01) ==
PROVIDERS: Emergency Provider Physician Assistant
DX: S93.401A Sprain of unspecified ligament of right ankle, initial encounter (principal); W18.42XA Slipping, tripping and stumbling without falling due to stepping into hole or opening, initial encounter
CPT/HCPCS: 73610; 73630; 99283; E0114

== ENCOUNTER → 2022-06-04 13:06 | Outpatient (BNVA) | payer BC, MEDICAID, SELFPAY | PROVIDERS: Visit Provider Family Medicine Adult Medicine | DX: Z20.822 Contact with and (suspected) exposure to COVID-19 (principal) | CPT/HCPCS: 87426 ==

== ENCOUNTER 2022-08-07 13:58 | Inpatient (IN) | payer BC, SELFPAY ==
[2022-08-07 14:05] VITALS: BP 126/85; PULSE 79; RESP 18; TEMP 36.4; O2SAT 100; BMI 35.2
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
[2022-08-07 15:54] LABS: Amphetamines Screen Urine Negative (Negative); Barbiturates Screen Urine Negative (Negative); Benzodiazepines Screen Urine Negative (Negative); Cocaine Screen Urine Negative (Negative); Opiate Screen Urine Negative (Negative); PCP Screen Urine Negative (Negative); THC Screen Urine Negative (Negative)
[2022-08-07 16:10] LABS: Basophils % 0.2 %; Eosinophils # 0.1 10^3/uL (0.0-0.8); Eosinophils % 0.7 %; Hematocrit 40.3 % (37.0-47.0); Hemoglobin 12.4 g/dL (11.5-15.3); Lymphocytes # 1.7 10^3/uL (0.8-4.8); Lymphocytes % 18.6 %; Mean Corpuscular HGB Conc 30.8 g/dL (30.0-36.0); Mean Corpuscular Hemoglobin 27.9 pg (28.0-34.0); Mean Corpuscular Volume 90.6 fl (81-99); Mean Platelet Volume 9.6 fL (7.4-10.4); Monocytes # 0.4 10^3/uL (0.2-0.9); Monocytes % 4.7 %; Neutrophils # 6.86 10^3/uL (1.8-7.7); Neutrophils % 75.6 %; Nucleated Red Blood Cells % 0 %; Platelet Count 304 10^3/cmm (130-400); Red Blood Count 4.45 10^6/uL (4.1-5.3); Red Cell Distribution Width 13.1 % (12.1-15.1); White Blood Count 9.1 10^3/uL (4.0-10.0)
[2022-08-07 16:59] LABS: Alanine Aminotransferase 7 U/L (0-33); Albumin Level 4.2 g/dL (3.5-5.2); Alkaline Phosphatase 97 U/L (35-105); Blood Urea Nitrogen 10 mg/dL (6-20); Calcium 8.8 mg/dL (8.5-10.5); Carbon Dioxide 21 mmol/L (22-29); Chloride 104 mmol/L (98-107); Globulin 2.5 g/dL (1.3-4.6); Glomerular Filtration Rate 142.1 mL/min (90-130); Glucose 98 mg/dL (65-115); Osmolality Calculated 281 mOsm/kg (285-295); Sodium 136 mmol/L (136-145); Total Bilirubin 0.5 mg/dL (0.15-1.2); Total Protein 6.7 g/dL (6.6-8.7)
[2022-08-07 17:00] LABS: Acetaminophen < 5.0 ug/mL (10-30); Anion Gap 15.5 (5-19); Aspartate Amino Transferase 11 U/L (0-32); Salicylate < 0.3 mg/dL (3-10)
[2022-08-07 17:01] LABS: Potassium 4.5 mmol/L (3.5-5.1)
[2022-08-07 17:27] LABS: HCG Qualitative Urine. Negative (Negative)
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
[2022-08-07] MEDS: acetaminophen 500 mg Tablet 1000 MG PO (18:08)
--- NOTE | 2022-08-07 18:26 | PC.NURSE ---
Report called to KAYLAN Shaw
--- NOTE | 2022-08-07 18:52 | PC.NURSE ---
Report given to KAYLAN Jonas
[2022-08-07 22:00] VITALS: BP 121/84; PULSE 91; RESP 18; TEMP 36.7; O2SAT 99
[2022-08-07] MEDS: hyDROXYzine 25 mg Capsule 50 MG PO (22:40)
[2022-08-07] MEDS: trazodone 50 mg Tablet PO (22:40)
[2022-08-08 06:00] VITALS: BP 97/64; PULSE 76; RESP 18; TEMP 37.1; O2SAT 96
--- NOTE | 2022-08-08 08:36 | PC.NURSE ---
influnza vaccine 0.5 ml given IM in left deltoid lot [id number] exp 04/04/23
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
[2022-08-08 13:20] LABS: Vitamin B12 286 pg/mL (232-1245)
[2022-08-08 14:00] VITALS: BP 102/76; PULSE 87; RESP 18; TEMP 36.6; O2SAT 100
[2022-08-08] MEDS: sertraline 50 mg Tablet 25 MG PO (14:56)
[2022-08-08] MEDS: acetaminophen 325 mg Tablet 650 MG PO (14:59)
[2022-08-08] MEDS: methylphenidate 10 mg Tablet PO (15:04)
[2022-08-08] MEDS: ibuprofen 800 mg tablet PO (19:04)
[2022-08-08] MEDS: trazodone 50 mg Tablet PO (19:57)
[2022-08-08 22:00] VITALS: BP 114/73; PULSE 83; RESP 17; TEMP 36.7; O2SAT 98
[2022-08-09 06:00] VITALS: BP 108/74; PULSE 84; RESP 17; TEMP 36.4; O2SAT 97
[2022-08-09] MEDS: ibuprofen 800 mg tablet PO ×3 (07:16→20:46)
[2022-08-09] MEDS: sertraline 50 mg Tablet 25 MG PO (09:38)
[2022-08-09] MEDS: methylphenidate 10 mg Tablet PO ×3 (09:39→15:05)
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
[2022-08-09 13:54] VITALS: BP 111/78; PULSE 92; RESP 18; TEMP 36.9; O2SAT 99
[2022-08-09 20:37] VITALS: BP 149/101; PULSE 95; RESP 18; TEMP 36.8; O2SAT 98
[2022-08-09] MEDS: trazodone 50 mg Tablet PO (20:46)
[2022-08-10 06:00] VITALS: BP 101/69; PULSE 60; RESP 16; TEMP 36.7; O2SAT 96
[2022-08-10] MEDS: sertraline 50 mg Tablet PO (08:28)
[2022-08-10] MEDS: methylphenidate 10 mg Tablet PO ×3 (08:28→15:54)
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
[2022-08-10 14:00] VITALS: BP 111/70; PULSE 60; RESP 16; TEMP 36.7; O2SAT 97
[2022-08-10] MEDS: ibuprofen 800 mg tablet PO (18:53)
[2022-08-10 22:00] VITALS: BP 126/77; PULSE 88; RESP 17; TEMP 37; O2SAT 99
[2022-08-10] MEDS: trazodone 50 mg Tablet PO (22:40)
[2022-08-11 06:00] VITALS: BP 92/58; PULSE 80; RESP 17; TEMP 36.8; O2SAT 91; BMI 35.2
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
--- NOTE | 2022-08-11 08:09 | PC.NURSE ---
shift assessment denies SI/HI/AVH currently, obsessing about reading her affidavit, assured patient we would check with physician when he came to unit today about getting her the affidavits to read.
[2022-08-11] MEDS: methylphenidate 10 mg Tablet PO ×3 (08:15→16:55)
[2022-08-11] MEDS: sertraline 50 mg Tablet PO (08:15)
[2022-08-11 14:00] VITALS: BP 112/75; PULSE 89; RESP 18; TEMP 36.6; O2SAT 98
[2022-08-11] MEDS: ibuprofen 800 mg tablet PO (19:12)
[2022-08-11] MEDS: trazodone 50 mg Tablet PO ×2 (19:12→21:54)
[2022-08-11 19:37] VITALS: BP 108/67; PULSE 102; RESP 18; TEMP 36.9; O2SAT 99
[2022-08-12 06:00] VITALS: BP 100/58; PULSE 82; RESP 16; TEMP 36.8; O2SAT 98
[2022-08-12] MEDS: methylphenidate 10 mg Tablet PO ×2 (08:18→13:25)
[2022-08-12] MEDS: sertraline 50 mg Tablet PO (08:18)
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
[2022-08-12 12:10] VITALS: BP 100/58; PULSE 82; RESP 16; TEMP 36.8; O2SAT 98
== END 2022-08-12 16:24 | disposition home or self-care (01) | DRG 881 ==
LOC: ER 17:24 → NP 08-08 06:45
PROVIDERS: Admitting Provider Psychiatry & Neurology Psychiatry; Emergency Provider Emergency Medicine; Visit Provider Psychiatry & Neurology Psychiatry
DX: F32.9 Major depressive disorder, single episode, unspecified (principal); F41.1 Generalized anxiety disorder; Z81.8 Family history of other mental and behavioral disorders; F17.200 Nicotine dependence, unspecified, uncomplicated; F90.0 Attention-deficit hyperactivity disorder, predominantly inattentive type
CPT/HCPCS: 80053; 80306; 80307; 81025; 82607; 85025; 90471; 90686; 97150; 97165; 99285

== ENCOUNTER → 2022-08-15 09:52 | Outpatient (BNVA) | payer BC, MEDICAID, SELFPAY | PROVIDERS: Visit Provider Nurse Practitioner Family | DX: F32.9 Major depressive disorder, single episode, unspecified (principal); Z13.6 Encounter for screening for cardiovascular disorders | CPT/HCPCS: 80053; 80061; 82607; 84443; 85025 ==

== ENCOUNTER → 2022-09-18 14:13 | Outpatient (BNVA) | payer BC, MEDICAID, SELFPAY | PROVIDERS: Visit Provider Registered Nurse Neonatal Intensive Care | DX: R50.9 Fever, unspecified (principal) | CPT/HCPCS: 87400 ==

== ENCOUNTER → 2023-07-21 10:43 | Outpatient (BNVA) | payer BC, MEDICAID, SELFPAY | PROVIDERS: PCP Nurse Practitioner Family; Visit Provider Nurse Practitioner Family | DX: R53.83 Other fatigue (principal); F41.8 Other specified anxiety disorders; Z79.899 Other long term (current) drug therapy | CPT/HCPCS: 80053; 82306; 82607; 83540; 84443; 85025 ==

== ENCOUNTER → 2023-07-30 11:00 | Outpatient (BNVA) | payer BC, MEDICAID, SELFPAY | PROVIDERS: PCP Nurse Practitioner Family; Visit Provider Nurse Practitioner Family | DX: R73.9 Hyperglycemia, unspecified (principal) | CPT/HCPCS: 83036 ==

== ENCOUNTER 2023-10-04 18:19 | Emergency (ER) | payer BC, MEDICAID, SELFPAY ==
[2023-10-04 18:22] VITALS: BP 109/76; PULSE 84; RESP 18; TEMP 36.6; O2SAT 99; BMI 35.0
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
[2023-10-04 20:20] VITALS: BP 120/72; PULSE 79; O2SAT 100
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
[2023-10-04] MEDS: ketorolac 60 mg/2 mL INJ IM (21:07)
[2023-10-04 21:26] VITALS: BP 127/81; PULSE 84; O2SAT 100
== END 2023-10-04 21:28 | disposition home or self-care (01) ==
PROVIDERS: Emergency Provider Emergency Medicine; PCP Nurse Practitioner Family
DX: M54.50 Low back pain, unspecified (principal); S90.211A Contusion of right great toe with damage to nail, initial encounter; W20.8XXA Other cause of strike by thrown, projected or falling object, initial encounter
CPT/HCPCS: 72040; 72072; 72100; 73630; 96372; 99284; J1885

== ENCOUNTER → 2023-12-03 13:14 | Outpatient (BNVA) | payer BC, MEDICAID, SELFPAY | PROVIDERS: PCP Nurse Practitioner Family; Visit Provider Nurse Practitioner Family | DX: R53.83 Other fatigue (principal); E55.9 Vitamin D deficiency, unspecified | CPT/HCPCS: 80053; 80061; 82306; 84443; 85025 ==

== ENCOUNTER 2024-04-02 14:46 | Emergency (ER) | payer BC, MEDICAID, SELFPAY ==
--- NOTE | 2024-04-02 14:46 | ECG_ITS ---
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 Measurements Intervals [place] Rate: 97 P: 50 MS: 141 QRS: 20 QRSD: 86 T: 40 QT: 307 QTc: 392 Interpretive Statements SINUS RHYTHM NONSPECIFIC T-WAVE ABNORMALITY Compared to ECG 06/21/2020 20:55:07 T-wave abnormality now present Electronically Signed On 04-02-2024 20:42:47 CDT by Andrea Castro M.D. [id number] f
[2024-04-02 14:53] VITALS: BP 105/74; PULSE 98; RESP 14; TEMP 36.8; O2SAT 97; BMI 33.8
--- NOTE | 2024-04-02 14:57 | ECG_ITS ---
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 Measurements Intervals [place] Rate: 97 P: 50 ND: 141 QRS: 20 QRSD: 86 T: 40 QT: 307 QTc: 392 Interpretive Statements SINUS RHYTHM NONSPECIFIC T-WAVE ABNORMALITY Compared to ECG 06/21/2020 20:55:07 T-wave abnormality now present Electronically Signed On 04-02-2024 20:42:51 CDT by Andrea Csatro M.D. [id number]
--- NOTE | 2024-04-02 15:04 | XR_ITS ---
WS: [id number] Exam: XR chest 1V portable [id number] Date/Time of Exam: 04/02/2024 3:25 PM Reason For Exam: chest pain Comparison 01/09/2014. Lungs are clear and fully inflated. Normal cardiomediastinal silhouette and regional bony elements. N o pleural effusions. XR/XR chest 1V portable [id number] IMPRESSION: 1. Negative chest.
--- NOTE | 2024-04-02 15:27 | W.ED.CHESTPA ---
Documented by User: COURTNEY Alvarado 04/02/24 15:39 HPI - Chest Pain General: Chief Complaint: Chest Pain Stated Complaint: chest pain, sob, Time Seen by Provider: 04/02/24 14:57 Source: patient Mode of arrival: ambulatory Limitations: no limitations History of Present Illness: Patient is a 33-year-old female presents to ED today with complaint of chest pain. 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 She states she has started developing substernal/left chest pain around that time that lasted for an hour or 2 before subsiding. She states symptoms returned later this afternoon thus prompting her emergency visit. She states pain is worse with movement and deep inhalation. She has not had any cough, congestion, URI-like symptoms. No fevers. No cardiac or pulmonary history. She has not noticed any lower extremity swelling, calf pain, risk factors for PE. Denies history of acid reflux/GERD. MD complaint: chest pain Onset (ago): hour(s) Timing of current episode: episodic Prior episodes: No Onset: during rest Pain location: substernal and left chest Severity: moderate Relieving factors: nothing Exacerbating factors: inspiration and movement Associated symptoms: Deny abdominal pain, dyspnea, fever(s), nausea, palpitations, syncope or vomiting Treatment prior to arrival: none Risk Factors: Coronary artery disease risk factors: none Thoracic aortic dissection risk factors: none Related Data: On Oral Contraceptives: No Review of Systems Const: Denies: fever(s), chills, body aches, fatigue or malaise Eyes: Denies: change in vision or blurry vision Card: Reports: chest pain; Denies: palpitations, irregular heart rhythm, edema, swelling of feet/ankles, lightheadedness, syncope, pre-syncope, dyspnea on exertion, orthopnea, leg pain with exertion or acrocyanosis Resp: Reports: pain on inspiration; Denies: dyspnea, productive cough, non-productive cough, wheezing, stridor, change in phlegm color, hemoptysis or chest congestion GI: Denies: abdominal pain, nausea, vomiting, heartburn or diarrhea : Denies: dysuria Musc: Denies: neck pain, back pain, extremity swelling or joint pain Skin/Breast: Denies: rash Neuro: Denies: headache(s), numbness in extremities, weakness in extremities, sensory changes or dizziness PFSH ED PFSH: Medical History Major depressive disorder, recurrent, moderate Psychiatric care Depression Abdominal cramping Nausea in adult patient Chronic headaches Reports having chronic headaches since the age of 5. Has been evaluated and all evaluation has been negative. She takes ibuprofen and Tylenol as needed for headaches. No pertinent past medical history Denies diabetes, asthma, hypertension, seizures, DVT/PE. PCP: Tierra Fagan [facility] Anxiety with depression Surgical History Status post tubal ligation 10/25/2020--- tubal ligation via umbilicus via modified [place] [facility] [place] Pathology confirmed fallopian tubes with benign pathology. S/P wisdom tooth extraction History of laparoscopy 02/16/2010---> Dr. Genao for pelvic pain-normal uterus ovaries and tubes. No endometriosis or scarring noted.(Operative report scanned) History of appendectomy 2011[place] [facility] History of dilatation and curettage 2009 after a miscarriage by Dr. Archie Abel [place] [facility] Family History Mother Family history of thyroid problem Diabetes Hypertension Heart disease Thyroid disease Grandmother Breast cancer Paternal grandmother, diagnosed in her late 60s Colon cancer Maternal grandmother, age at diagnosis unknown Diabetes Maternal grandmother Family/Other Breast cancer Paternal aunt, diagnosed in her 40s Ovarian cancer Maternal aunt, age at diagnosis unknown Diabetes Paternal aunt Father Diabetes Hypertension Stroke Denies family history of Hyperlipidemia Uterine cancer Social History Smoking and tobacco/nicotine status: never used tobacco/nicotine Substance/Drug Use: never Physical Exam Const: COMMON NORMALS: no acute distress, patient oriented x3, no limitations, alert and well nourished GENERAL APPEARANCE: cooperative NUTRITIONAL APPEARANCE: overweight ORIENTATION/CONSCIOUSNESS: Yes awake, Yes oriented to person, Yes oriented to place and Yes oriented to time HENMT: COMMON NORMALS: normocephalic and atraumatic HEAD & SCALP: normal to inspection, normocephalic and atraumatic Neck/C-Spine: COMMON NORMALS: full ROM, no lymphadenopathy, supple, no meningeal signs and no JVD Chest: COMMONS NORMALS: normal inspection of the chest OTHER: somewhat tender to palpation lower chest/epigastric region Resp: COMMON NORMALS: normal respiratory effort and clear to auscultation bilaterally AUSCULTATION: clear to auscultation bilaterally Cardio: COMMON NORMALS: no JVD, regular rate and regular rhythm RATE: regular rate RHYTHM: regular rhythm GI: COMMON NORMALS: Normal to inspection, nondistended, normoactive bowel sounds present, Soft to palpation, No hepatosplenomegaly present and no masses INSPECTION: Yes normal to inspection AUSCULTATION: Yes normoactive bowel sounds PALPATION: Yes Soft to palpation, Yes Tenderness to palpation present (GI) (epigastric), No Guarding due to palpation present (GI), No Rigid due to palpation and Yes No hepatosplenomegaly present : COMMON NORMALS: Yes no CVA tenderness BLADDER/KIDNEY EXAM: Yes no CVA tenderness Back/Pelvis: COMMON NORMALS: no CVA tenderness and thoracic and lumbar spine normal to inspection Extremity: COMMON NORMALS: normal to inspection GENERAL: Yes normal exam except as noted Neuro: BILLIE COMA SCALE: document GCS findings Sargeant coma scale eye opening: Spontaneous Sargeant coma scale verbal response: Orientated Sargeant coma scale motor response: Obey commands Billie coma scale total score: 15 COMMON NORMALS: patient oriented x3 SENSORIUM/ORIENTATION: Yes alert, Yes oriented to person, Yes oriented to place and Yes oriented to time MENINGEAL SIGNS: Yes no meningeal signs Skin: COMMON NORMALS: no rashes or lesions noted GENERAL SKIN EXAM: no rashes or lesions noted Course Vital Signs: Vital signs: Vital Signs Temperature 98.3 F 04/02/24 14:53 Pulse Rate 79 04/02/24 17:52 Respiratory Rate 18 04/02/24 17:52 Blood Pressure 120/57 04/02/24 17:52 Pulse Oximetry 100 04/02/24 17:52 Oxygen Delivery Me thod Room Air 04/02/24 17:30 MDM - Chest Pain Lab Data 04/02/24 15:42 04/02/24 15:42 Radiology Impressions Chest X-Ray 04/02/24 15:04 IMPRESSION: 1. Negative chest. Chest CTA 04/02/24 16:09 IMPRESSION: No evidence of pulmonary embolism or other acute abnormality in the chest. Laboratory Results WBC 7.14 10^3/uL (3.29-11.43) 04/02/24 15:42 RBC 4.42 10^6/uL (3.85-5.65) 04/02/24 15:42 Hgb 12.10 g/dL (11.27-16.99) 04/02/24 15:42 Hct 37.7 % (36-47) 04/02/24 15:42 MCV 85.3 fl (85-98) 04/02/24 15:42 MCH 27.4 pg (27-33) 04/02/24 15:42 MCHC 32.1 g/dL (30-55) 04/02/24 15:42 RDW 13.0 % (12.1-15.1) 04/02/24 15:42 Plt Count 344 10^3/cmm (157-399) 04/02/24 15:42 MPV 9.5 fL (7.4-10.4) 04/02/24 15:42 Neut % (Auto) 72.5 % 04/02/24 15:42 Lymph % (Auto) 18.8 % 04/02/24 15:42 [place] % (Auto) 6.9 % 04/02/24 15:42 Eos % (Auto) 1.3 % 04/02/24 15:42 Baso % (Auto) 0.4 % 04/02/24 15:42 Neut # (Auto) 5.18 10^3/uL (1.8-7.7) 04/02/24 15:42 Lymph # (Auto) 1.3 10^3/uL (0.8-4.8) 04/02/24 15:42 [place] # (Auto) 0.5 10^3/uL (0.2-0.9) 04/02/24 15:42 Eos # (Auto) 0.1 10^3/uL (0.0-0.8) 04/02/24 15:42 Baso # (Auto) 0.0 10^3/uL (0.0-0.1) 04/02/24 15:42 Nucleated RBC % (auto) 0 % 04/02/24 15:42 Nucleated RBCs # 0.0 /100WBC 04/02/24 15:42 D-Dimer 0.83 ug/mLFEU (0-0.59) H 04/02/24 15:42 Sodium 139 mmol/L (136-145) 04/02/24 15:42 Potassium 3.9 mmol/L (3.5-5.1) 04/02/24 15:42 Chloride 106 mmol/L (98-107) 04/02/24 15:42 Carbon Dioxide 23 mmol/L (22-29) 04/02/24 15:42 Anion Gap 13.9 (5-19) 04/02/24 15:42 BUN 8 mg/dL (6-20) 04/02/24 15:42 Creatinine 0.6 mg/dL (0.5-0.9) 04/02/24 15:42 GFR Calculation 113.8 mL/min (90-130) 04/02/24 15:42 Glucose 87 mg/dL (65-115) 04/02/24 15:42 Calculated Osmolality 286 mOsm/kg (285-295) 04/02/24 15:42 Calcium 8.3 mg/dL (8.5-10.5) L 04/02/24 15:42 Total Bilirubin 0.3 mg/dL (0.15-1.2) 04/02/24 15:42 AST 9 U/L (0-32) 04/02/24 15:42 ALT 6 U/L (0-33) 04/02/24 15:42 Alkaline Phosphatase 100 U/L (35-105) 04/02/24 15:42 Troponin T Baseline < 6 ng/L (0-10) 04/02/24 15:42 Troponin T 120 Minute 6.00 ng/L (0-10) 04/02/24 17:16 Delta Troponin T 0.38851 ABS# (0-10) 04/02/24 17:16 Total Protein 6.6 g/dL (6.6-8.7) 04/02/24 15:42 Albumin 3.8 g/dL (3.5-5.2) 04/02/24 15:42 Globulin 2.8 g/dL (1.3-4.6) 04/02/24 15:42 Lipase 28 U/L (13-60) 04/02/24 15:42 Discharge Plan Discharge Patient Disposition: Home Clinical Impression: Chest pain Qualifiers: Chest pain type: unspecified Qualified Code(s): R07.9 - Chest pain, unspecified Condition: Stable Prescriptions: No Action doxycycline hyclate 100 mg tablet 100 mg PO BID 7 Days Qty: 14 0RF ondansetron 4 mg tablet,disintegrating 4 mg PO Q8H PRN (Reason: nausea and vomiting) Qty: 10 0RF rizatriptan 10 mg tablet See Rx Instructions PO .COMPLEX Qty: 10 2RF Rx Instructions: take 1 tab at onset of headache; if no relief may repeat 1 tab after at least 2 hrs; max = 3 tabs/24 hr PO cholecalciferol (vitamin D3) 1,250 mcg (50,000 unit) capsule 50,000 unit PO .once weekly 28 Days Qty: 4 3RF cyclobenzaprine 5 mg tablet 5 mg PO TID PRN (Reason: muscle spasm) Qty: 60 0RF Advil 200 mg Tablet 200 mg PO Q6H PRN (Reason: Pain) Tylenol 325 mg Capsule 325 mg PO QID PRN (Reason: Pain) Discharge Orders: Discharge ED (Routine); Ordered 04/02/24 Ordered By: Johan Castro Referrals: Antonietta Lino FNP-C [Primary Care Provider] - Discharge Diet: As Directed Discharge Activity: Increase activity as tolerated Patient Instructions: Chest Pain (ED) Activity Restrictions/Additional Instructions: Please follow-up with primary care as discussed to arrange for further outpatient cardiac management. Return with any new or concerning symptoms you may have. Sign Out Sign Out Data: Patient Sign Out occurred on 04/02/24 at 17:02. Patient's care was discussed, and care was transferred from COURTNEY Alvarado to COURTNEY Zavaleta. Coding Level of Care Code ED Pediatric Acute Care Unit Nurse for Chg Fwd Documented by User: COURTNEY Zavaleta 04/02/24 18:42 HPI - Chest Pain General: Chief Complaint: Chest Pain Stated Complaint: chest pain, sob, Time Seen by Provider: 04/02/24 14:57 PFSH ED PFSH: Medical History Major depressive disorder, recurrent, moderate Psychiatric care Depression Abdominal cramping Nausea in adult patient Chronic headaches Reports having chronic headaches since the age of 5. Has been evaluated and all evaluation has been negative. She takes ibuprofen and Tylenol as needed for headaches. No pertinent past medical history Denies diabetes, asthma, hypertension, seizures, DVT/PE. PCP: Tierra Fagan [facility] Anxiety with depression Surgical History Status post tubal ligation 10/25/2020--- tubal ligation via umbilicus via modified [place] [facility] [place] Pathology confirmed fallopian tubes with benign pathology. S/P wisdom tooth extraction History of laparoscopy 02/16/2010---> Dr. Genao for pelvic pain-normal uterus ovaries and tubes. No endometriosis or scarring noted.(Operative report scanned) History of appendectomy 2011[place] [facility] History of dilatation and curettage 2009 after a miscarriage by Dr. Archie Abel [place] [facility] Family History Mother Family history of thyroid problem Diabetes Hypertension Heart disease Thyroid disease Grandmother Breast cancer Paternal grandmother, diagnosed in her late 60s Colon cancer Maternal grandmother, age at diagnosis unknown Diabetes Maternal grandmother Family/Other Breast cancer Paternal aunt, diagnosed in her 40s Ovarian cancer Maternal aunt, age at diagnosis unknown Diabetes Paternal aunt Father Diabetes Hypertension Stroke Denies family history of Hyperlipidemia Uterine cancer Social History Smoking and tobacco/nicotine status: never used tobacco/nicotine Substance/Drug Use: never Physical Exam Neuro: BILLIE COMA SCALE: document GCS findings Sargeant coma scale total score: 15 Course Vital Signs: Vital signs: Vital Signs Temperature 98.3 F 04/02/24 14:53 Pulse Rate 79 04/02/24 17:52 Respiratory Rate 18 04/02/24 17:52 Blood Pressure 120/57 04/02/24 17:52 Pulse Oximetry 100 04/02/24 17:52 Oxygen Delivery Me thod Room Air 04/02/24 17:30 MDM - Chest Pain Medical Decision Making Patient presented for acute onset chest pain, no pertinent cardiac history to report. Vitals on arrival were unremarkable and her condition has remained stable throughout the ED course. Physical examination was ultimately unremarkable though she did have some epigastric tenderness on palpation. No reported history of acid reflux or heartburn. Her initial EKG did show normal sinus rhythm rate of [address] segment changes. Her initial troponin was negative. All of her other lab work was normal aside from a slight elevation in D-dimer. She was not reporting any shortness of breath or peripheral edema/unilateral pain or edema. CTA was obtained for this but did not demonstrate any acute pulmonary embolism. Patient also was given a GI cocktail but states this did not do much in way of improvement of her symptoms. Due to her negative cardiac workup I do not believe her pain to be of cardiac etiology at this time, however she is instructed to follow-up with primary care for further outpatient cardiac workup such as stress testing and echocardiogram. She was given strict return precautions and is discharged home. Lab Data 04/02/24 15:42 04/02/24 15:42 Radiology Impressions Chest X-Ray 04/02/24 15:04 IMPRESSION: 1. Negative chest. Chest CTA 04/02/24 16:09 IMPRESSION: No evidence of pulmonary embolism or other acute abnormality in the chest. Laboratory Results WBC 7.14 10^3/uL (3.29-11.43) 04/02/24 15:42 RBC 4.42 10^6/uL (3.85-5.65) 04/02/24 15:42 Hgb 12.10 g/dL (11.27-16.99) 04/02/24 15:42 Hct 37.7 % (36-47) 04/02/24 15:42 MCV 85.3 fl (85-98) 04/02/24 15:42 MCH 27.4 pg (27-33) 04/02/24 15:42 MCHC 32.1 g/dL (30-55) 04/02/24 15:42 RDW 13.0 % (12.1-15.1) 04/02/24 15:42 Plt Count 344 10^3/cmm (157-399) 04/02/24 15:42 MPV 9.5 fL (7.4-10.4) 04/02/24 15:42 Neut % (Auto) 72.5 % 04/02/24 15:42 Lymph % (Auto) 18.8 % 04/02/24 15:42 [place] % (Auto) 6.9 % 04/02/24 15:42 Eos % (Auto) 1.3 % 04/02/24 15:42 Baso % (Auto) 0.4 % 04/02/24 15:42 Neut # (Auto) 5.18 10^3/uL (1.8-7.7) 04/02/24 15:42 Lymph # (Auto) 1.3 10^3/uL (0.8-4.8) 04/02/24 15:42 [place] # (Auto) 0.5 10^3/uL (0.2-0.9) 04/02/24 15:42 Eos # (Auto) 0.1 10^3/uL (0.0-0.8) 04/02/24 15:42 Baso # (Auto) 0.0 10^3/uL (0.0-0.1) 04/02/24 15:42 Nucleated RBC % (auto) 0 % 04/02/24 15:42 Nucleated RBCs # 0.0 /100WBC 04/02/24 15:42 D-Dimer 0.83 ug/mLFEU (0-0.59) H 04/02/24 15:42 Sodium 139 mmol/L (136-145) 04/02/24 15:42 Potassium 3.9 mmol/L (3.5-5.1) 04/02/24 15:42 Chloride 106 mmol/L (98-107) 04/02/24 15:42 Carbon Dioxide 23 mmol/L (22-29) 04/02/24 15:42 Anion Gap 13.9 (5-19) 04/02/24 15:42 BUN 8 mg/dL (6-20) 04/02/24 15:42 Creatinine 0.6 mg/dL (0.5-0.9) 04/02/24 15:42 GFR Calculation 113.8 mL/min (90-130) 04/02/24 15:42 Glucose 87 mg/dL (65-115) 04/02/24 15:42 Calculated Osmolality 286 mOsm/kg (285-295) 04/02/24 15:42 Calcium 8.3 mg/dL (8.5-10.5) L 04/02/24 15:42 Total Bilirubin 0.3 mg/dL (0.15-1.2) 04/02/24 15:42 AST 9 U/L (0-32) 04/02/24 15:42 ALT 6 U/L (0-33) 04/02/24 15:42 Alkaline Phosphatase 100 U/L (35-105) 04/02/24 15:42 Troponin T Baseline < 6 ng/L (0-10) 04/02/24 15:42 Troponin T 120 Minute 6.00 ng/L (0-10) 04/02/24 17:16 Delta Troponin T 0.71411 ABS# (0-10) 04/02/24 17:16 Total Protein 6.6 g/dL (6.6-8.7) 04/02/24 15:42 Albumin 3.8 g/dL (3.5-5.2) 04/02/24 15:42 Globulin 2.8 g/dL (1.3-4.6) 04/02/24 15:42 Lipase 28 U/L (13-60) 04/02/24 15:42 All radiology interpretation(s) finalized by discharge Discharge Plan Discharge Patient Disposition: Home Clinical Impression: Chest pain Qualifiers: Chest pain type: unspecified Qualified Code(s): R07.9 - Chest pain, unspecified Condition: Stable Prescriptions: No Action doxycycline hyclate 100 mg tablet 100 mg PO BID 7 Days Qty: 14 0RF ondansetron 4 mg tablet,disintegrating 4 mg PO Q8H PRN (Reason: nausea and vomiting) Qty: 10 0RF rizatriptan 10 mg tablet See Rx Instructions PO .COMPLEX Qty: 10 2RF Rx Instructions: take 1 tab at onset of headache; if no relief may repeat 1 tab after at least 2 hrs; max = 3 tabs/24 hr PO cholecalciferol (vitamin D3) 1,250 mcg (50,000 unit) capsule 50,000 unit PO .once weekly 28 Days Qty: 4 3RF cyclobenzaprine 5 mg tablet 5 mg PO TID PRN (Reason: muscle spasm) Qty: 60 0RF Advil 200 mg Tablet 200 mg PO Q6H PRN (Reason: Pain) Tylenol 325 mg Capsule 325 mg PO QID PRN (Reason: Pain) Discharge Orders: Discharge ED (Routine); Ordered 04/02/24 Ordered By: Johan Castro Referrals: Antonietta Lino FNP-C [Primary Care Provider] - Discharge Diet: As Directed Discharge Activity: Increase activity as tolerated Patient Instructions: Chest Pain (ED) Activity Restrictions/Additional Instructions: Please follow-up with primary care as discussed to arrange for further outpatient cardiac management. Return with any new or concerning symptoms you may have. Sign Out Sign Out Data: Patient Sign Out occurred on 04/02/24 at 17:02. Patient's care was discussed, and care was transferred from COURTNEY Alvarado to COURTNEY Zavaleta. Coding Level of Care Code ED Pediatric Acute Care Unit Nurse for Mckenna Robles
[2024-04-02] MEDS: lidocaine 2% viscous 15 ML, aluminum-mag hydrox-simethicon 30 ML, sucralfate oral liq 1 GM PO (15:39)
[2024-04-02 15:51] LABS: Basophils % 0.4 %; Eosinophils # 0.1 10^3/uL (0.0-0.8); Eosinophils % 1.3 %; Hematocrit 37.7 % (36-47); Lymphocytes # 1.3 10^3/uL (0.8-4.8); Lymphocytes % 18.8 %; Mean Corpuscular HGB Conc 32.1 g/dL (30-55); Mean Corpuscular Hemoglobin 27.4 pg (27-33); Mean Corpuscular Volume 85.3 fl (85-98); Mean Platelet Volume 9.5 fL (7.4-10.4); Monocytes # 0.5 10^3/uL (0.2-0.9); Monocytes % 6.9 %; Neutrophils # 5.18 10^3/uL (1.8-7.7); Neutrophils % 72.5 %; Nucleated Red Blood Cells % 0 %; Platelet Count 344 10^3/cmm (157-399); Red Blood Count 4.42 10^6/uL (3.85-5.65); White Blood Count 7.14 10^3/uL (3.29-11.43)
[2024-04-02 16:00] VITALS: BP 93/68; PULSE 80; O2SAT 100
[2024-04-02 16:03] LABS: D Dimer 0.83 ug/mLFEU (0-0.59)
--- NOTE | 2024-04-02 16:09 | CTR_ITS ---
PROCEDURE INFORMATION: Exam: CTA Chest With Contrast Exam date and time: 04/02/2024 4:43 PM Age: 33 years old Clinical indication: Pain and abnormal findings; Abnormal diagnostic tests; Elevated d-dimer; Shortness of breath; Chest pressure; Additional info: Chest pain/sob/elevated ddimer TECHNIQUE: Imaging protocol: Computed tomographic angiography of the chest with contrast. Exam focused on the arteries. 3D rendering (Not supervised by radiologist): MIP and/or 3D reconstructed images were created by the technologist. Radiation optimization: All CT scans at this facility use at least one of these dose optimization techniques: automated exposure control; mA and/or kV adjustment per patient size (includes targeted exams where dose is matched to clinical indication); or iterative reconstruction. Contrast material: OMNI 350; Contrast volume: 64 ml; Contrast route: INTRAVENOUS (IV); COMPARISON: CR XR chest 1V portable [id number] 04/02/2024 3:32 PM RADIATION DOSE METRICS: Total DLP (mGy-cm): 382.53 FINDINGS: Pulmonary arteries: Normal. No pulmonary emboli. Aorta: Unremarkable. No aortic aneurysm. No aortic dissection. Lungs: Unremarkable. No consolidation. No masses. Pleural spaces: Unremarkable. No pneumothorax. No pleural effusion. Heart: Unremarkable. No cardiomegaly. No pericardial effusion. Lymph nodes: Unremarkable. No enlarged lymph nodes. Spleen: 3.2 and 4.1 cm hypodense splenic lesions are compatible with cysts. Intestine: Scattered diverticuli in the visualized splenic flexure. Bones/joints: Unremarkable. No acute fracture. Soft tissues: Unremarkable. CT/CT angio chest PE protcl [id number] IMPRESSION: No evidence of pulmonary embolism or other acute abnormality in the chest.
[2024-04-02 16:10] LABS: Troponin(5th) Baseline < 6 ng/L (0-10)
[2024-04-02 16:20] LABS: Alanine Aminotransferase 6 U/L (0-33); Albumin Level 3.8 g/dL (3.5-5.2); Alkaline Phosphatase 100 U/L (35-105); Anion Gap 13.9 (5-19); Aspartate Amino Transferase 9 U/L (0-32); Blood Urea Nitrogen 8 mg/dL (6-20); Calcium 8.3 mg/dL (8.5-10.5); Carbon Dioxide 23 mmol/L (22-29); Chloride 106 mmol/L (98-107); Creatinine Clr Calc Pharmacy 131.4495; Globulin 2.8 g/dL (1.3-4.6); Glomerular Filtration Rate 113.8 mL/min (90-130); Glucose 87 mg/dL (65-115); Lipase 28 U/L (13-60); Osmolality Calculated 286 mOsm/kg (285-295); Potassium 3.9 mmol/L (3.5-5.1); Sodium 139 mmol/L (136-145); Total Bilirubin 0.3 mg/dL (0.15-1.2); Total Protein 6.6 g/dL (6.6-8.7)
[2024-04-02] MEDS: iohexol 350 mg/mL 500 mL Btl (per mL) IV (16:44)
--- NOTE | 2024-04-02 16:55 | ECG_ITS ---
[facility] Test Date: 2024-04-02 Pat Name: Nerissa Sutherland Department: Room: Gender: Female Child Support Case Officer: : 1990 Requested By: Sun Melgar Order Number: [id number] Conor MD: Andrea Castro M.D. Measurements Intervals [place] Rate: 75 P: 29 NH: 160 QRS: 19 QRSD: 90 T: 22 QT: 370 QTc: 413 Interpretive Statements SINUS RHYTHM Compared to ECG 04/02/2024 14:46:37 T-wave abnormality no longer present Heavy baseline artifact Electronically Signed On 04-03-2024 19:15:08 CDT by Andrea Castro M.D. [email or web address] [email or web address] ltd.[email or web address] [email or web address]/[id number]
[2024-04-02 17:30] VITALS: BP 113/78; PULSE 75; O2SAT 100
[2024-04-02 17:40] LABS: Troponin 5 2HR Delta 0.00001 ABS# (0-10)
[2024-04-02 17:52] VITALS: BP 120/57; PULSE 79; RESP 18; O2SAT 100
== END 2024-04-02 17:53 | disposition home or self-care (01) ==
PROVIDERS: Physician Assistant; Emergency Provider Physician Assistant; PCP Nurse Practitioner Family
DX: R07.9 Chest pain, unspecified (principal)
CPT/HCPCS: 36415; 71045; 71275; 80053; 83690; 84484; 85025; 85378; 93005; 99285; Q9967

== ENCOUNTER → 2024-05-23 16:35 | Outpatient (BNVA) | payer BC, MEDICAID, SELFPAY | PROVIDERS: PCP Nurse Practitioner Family; Visit Provider Emergency Medicine | DX: Z20.822 Contact with and (suspected) exposure to COVID-19 (principal) | CPT/HCPCS: 87426 ==

== ENCOUNTER 2025-06-20 20:05 | Emergency (ER) | payer BC, MEDICAID, SELFPAY ==
--- OUTSIDE RECORDS SUMMARY | 2020-12-20 06:00 | XMS_ITS | Continuity of Care Document ---
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 Speech is regular rate and rhythm. Patient denies any current suicidal or homicidal ideation. Thought is linear and goal directed; no looseness of association or flight of ideas is noted. Patient denies thought insertion, thought broadcast, or ideas of reference. Patient denies hallucinations in all five senses. Intelligence is average per fund of knowledge and vocabulary. Judgment and insight are intact. Mood is depressed. Affect is flat. Attention and concentration appear within normal limits. Immediate memory is intact; able to repeat three words. Recent memory is intact; able to recall those three words in five minutes. Remote memory is intact; able to recall last birthday. Language is intact; patient is able to name objects. Neurological Examination:Cranial Nerves: Oflaction (I) intact. Visula acuity (II) is good with glasses. Visual regalado are full to confrontation in all quadrants. Pupils are equally round at 3mm and reactive to light accommodation. Extraocular movements are intact (III, IV, ), with no ptosisi. Sensory over the face (V) is intact and equal bilaterally. Hearing (VIII) is grossly intact bilaterally. Williamson does not lateralize and AC>BC (normal Rinne) in both ears. Vestibular function intact (see motor/gait). The palate (IX and X) and uvula elevate symmetrically, with an intact gag reflex bilaterally and a normal voice. Shoulder shrug and head turning via trapezius and sternocleidomastoid (XI) is strong and equal bilaterally. Tongue protrudes (XII) midline and moves symmetrically with no fasciculations.Refluxes: Biceps, brachioradialis, triceps, patellar, and achilles are 2/4 bilaterally; no clonus. Plantar (Babinski) is downgoing bilaterally.Sensory: Intact bilaterally for pain (spinothalamic tract), position and vibration (posterior columns), along with light touch. Cortical discrimination intact with localization, 2-point discrimination, stereognosis, and graphesthesia. Romberg is negative with no pronator drift.Motor: Good muscle bulk and tone. Strength 5/5 (deltoid, biceps, triceps, quadriceps, and hamstrings).Cerebellar- rapidly alternating movements (ASPEN), [id number] (F'an), pronator drift. Gait with normal base. Coordination is good as measured by tandem walk, heel walk, and toe walk. No asterixix. BTL consult 27 yo he re for BTL consult. States she's done having babies. She is dealing with depression. She doesn't want to get again. She would like ocps until surgery. She had depo at the hospital inNov check The patient has no feeding complications, nursing difficulties, breast problems, vaginal bleeding, urinary problems or bowel problems. A depression screening has been completed. The patient has no history of domestic violence or gestational diabetes. She has not resumed sexual activity, work or exercise. She has no episiotomy/laceration pain. Additional Information: got depo provera before leaving hospital Nov 1wants OCP when depo due if tubes can't get tied in timeresigned tubal papers today in case can't get done by 11/14/18 when current papers . LMP was 10/31/19 18. Severity: high risk (severe anemia). The patient had 6 previous pregnancies. The patient denies aggravating factors. Pertinent negatives include anorexia, bleeding, breast tenderness, constipation, edema, fatigue, fever, headache, heartburn, irritability, nausea, pelvic pain, spotting, urinary difficulty, vaginal discharge, vomiting. LMP was 10/31/19 18. Severity: high risk (anemia). The patient had 6 previous pregnancies. The patient denies aggravating factors. The patient denies relieving factors. Associated symptoms include fatigue. Pertinent negatives include anorexia, bleeding, breast tenderness, constipation, edema, fever, headache, heartburn, irritability, nausea, pelvic pain, spotting, urinary difficulty, vaginal discharge, vomiting. blurry vision pt is 38 week pr egnant this friday. Pt states that before she could tell that the vision is not good as when it first checked. Pt states that she can tell that her left eye is way worse than the right eye. headaches Pt states before pt was getting the headaches same frequency as with . Pt states that the pain is across the forehead and sometimes behind the right eye. random times LMP was 10/31/19 18. Severity: high risk (anemia, grand multip). The patient had 6 previous pregnancies. The patient denies aggravating factors. The patient denies relieving factors. Pertinent negatives include anorexia, bleeding, breast tenderness, constipation, edema, fatigue, fever, headache, heartburn, irritability, nausea, pelvic pain, spotting, urinary difficulty, vaginal discharge, vomiting. LMP was 10/31/19 18. Severity: high risk (iron def anemia). The patient had 6 previous pregnancies. The patient denies aggravating factors. The patient denies relieving factors. Pertinent negatives include anorexia, bleeding, breast tenderness, constipation, edema, fatigue, fever, headache, heartburn, irritability, nausea, pelvic pain, spotting, urinary difficulty, vaginal discharge, vomiting. Additional information: getting iron infusions and taking iron. LMP was 10/31/19 18. Patient was not taking control pills at or around the time of her LMP. Severity: high risk (severe anemia). The patient had 6 previous pregnancies. The patient denies aggravating factors. The patient denies relieving factors. Pertinent negatives include anorexia, bleeding, breast tenderness, constipation, edema, fatigue, fever, headache, heartburn, irritability, nausea, pelvic pain, spotting, urinary difficulty, vaginal discharge, vomiting. routine see PND LMP was 10/31/19 18. Severity: high risk (anemia). The patient had 6 previous pregnancies. Pertinent negatives include anorexia, bleeding, breast tenderness, constipation, edema, fatigue, fever, headache, heartburn, irritability, nausea, pelvic pain, spotting, urinary difficulty, vaginal discharge, vomiting. LMP was 10/31/19 18. Severity: high risk. The patient had 6 previous pregnancies. Associated symptoms include fatigue, heartburn. Pertinent negatives include anorexia, bleeding, breast tenderness, constipation, edema, fever, headache, irritability, nausea, pelvic pain, spotting, urinary difficulty, vaginal discharge, vomiting. LMP was 10/31/19 18. Severity: high risk. The patient had 6 previous pregnancies. Pertinent negatives include anorexia, bleeding, breast tenderness, constipation, edema, fatigue, fever, headache, heartburn, irritability, nausea, pelvic pain, spotting, urinary difficulty, vaginal discharge, vomiting. Additional information: SI joint pain on right discussed. routine see PND LMP was 10/31/19 18. Severity: high risk. The patient had 6 previous pregnancies. routine See PND LMP was 10/31/19 18. Severity: high risk. Context: confirmed by lab test on 12/09/2017. Lab: [facility]. The patient had 6 previous pregnancies. Associated symptoms include headache, nausea, vomiting. Pertinent negatives include anorexia, bleeding, breast tenderness, constipation, edema, fatigue, fever, heartburn, irritability, pelvic pain, spotting, urinary difficulty, vaginal discharge. headlice pt states she archuleta s had a dry cough d/t allergies x 2 weeks; she has been taking Zyrtec that did help some but not much; she has experienced SOB and wheezing; she is concerned that her kids gave her headlice and would like to be checked; her children's physician would not give her a rx - cough Onset: 2 weeks a go. The patient describes the cough as productive (of yellow sputum) and productive at times. It occurs persistently. The problem has become gradually worse. There are no aggravating factors. There are no relieving factors. Associated symptoms include cough, post-nasal drainage, rhinorrhea and wheezing. Pertinent negatives include fever and sore throat. The patient has a history of allergies. dispense eyeglasses blurry vision The symptoms are reported as being mild. The symptoms occur constantly. She states the symptoms are acute. feels that glasses do not really help much when seeing things at a distance Headaches The symptoms are reported as being mild. The symptoms occur constantly. She states the symptoms are acute. headaches daily, pain on forehead and temples, random times/brightness of the room or outside. does sees spots before headaches happens. Refractive evaluation The sympto ms are reported as being mild. The symptoms occur constantly. She states the symptoms are acute. last exam maybe 2 years ago. got glasses in nov 2016 when child broke glasses. Warned pt that headache if its as bad as she says could affect the vison exam. pt wanted to continue. allergies The patient pres ents with burning in eyes, itchy eyes, itchy throat and watery eyes. The patient is also experiencing headache, nasal congestion, reddened eyes, sneezing and tearing. The patient denies chest tightness, coryza, cough, dizziness, ear pain, hoarseness, pharyngitis, post nasal drainage, reflux, sinus infections, sinus pain and urticaria. Additional information: Patient has increased symptoms of allergies. She is needing a prescriptions. anxiety/depression Patient prese nts to the clinic to establish care. She states that she feels very down and depressed. She recently left the house she was living in due to mold. She staets she is currently homeless and living in her van with her boyfriend . She states that she has 4 children but they are staying at her sisters untils he can get on her feet. She is wanting to try medication to help with depression and anxiety. She states that she has been on medication in the past but does not rememeber what she was on. She denies any suicidal ideations. vision trouble Patient presents to the clinic stating that she has an eye appointment after this appointment. She states that it has been a while since she has had her glasses checked. She has been having blurry vision which is causing increased headaches. check Patient is 25 y ear old female who presents for check following vaginal delivery on 04/10/16. States she delivered at [facility] in [place] but hasn't seen anyone since due to physician being in [place] and she now lives in [place]. States she was seen by Dr. Bruner for OB care. Pt. currently bottle feeding without difficulty. Pt. reports history of depression with medication use prior to . She hasn't restarted medications as of yet due to her initially infant. Pt. advised on seeing [facility] for counseling and setting up with a PCP. Pt. reports unprotected intercourse but is unsure of when and denies control at this time. UPT negative today instructed on repeating in 2 weeks. Pt. desires to have a bilateral tubal ligation. Advised pt. on receiving Depo-Provera shot today for contraception until tubal is performed. Pt agreed. Functional Status Date Functional Assessmen t No Information Instructions Date Instruction Additional Infor quinn 1. Continue Zoloft a t this time due to high risk . Will follow up with OB unless decided she would like to try a different medications. 2. Will be seen again in PRN 3. Medication education completed and verbalized understanding4. Encouraged healthy diet and exercise5. Will call with any questions or concerns6. I reviewed the patient's chart including previous progress notes, lab data and nursing notes. We spoke about the risks and benefits of changes being made in medications, including possible drug/drug interactions and potential side effects. I explained the reason for the changes, i.e. better genetic match, different side effect profile and targeted symptoms. I explained other treatment options available. We also spoke about life style changes, including diet, exercise and substance abuse. Lastly, we spoke about continuing the treatment plan and what to do if conditions worsen. Related to Generalized Anxiety Disorder Weight control education Related to Generalized Anxiety Disorder Discussed permanence and non reversibility of tubal. Medicaid consent signed 09/16/18. Has had two surgeries on abdomen, both laparoscopicDiscussed alternative options for BTL including BC options, Essure device. Patient desires laparoscopic fulguration of fallopian tubesDiscussed risks of surgery including but not limited to bleeding, infection, damage to surrounding organs. Discussed recovery and down time from surgeryDiscussed BC options in the meantime. Patient plans OCPs.Paperwork filled out, plan for December date Related to Encounter for sterilization Impression/Plan Related to Regul ar astigmatism, bilateral see PND, continue current care R elated to Supervision of other high risk pregnancies, third trimester see PND, continue cu rrent careRTC in 4 weeks Related to Supervision of high risk , 2nd trimester Lifestyle education Related to D ental Examination See PND. continue current care. Related to Supervision of high risk , 1st trimester New OB intake, See P ND.Routine labs/diagnostics completed today. See Orders.JERAD adjusted by [facility].PNV daily.Compazine 10 mg BID for headache/nausea PRN.Natroba for head lice as directed. Discussed genetic testing, desires sequentials, will arrange after gestation is known.RTC in 2 weeks for follow up, sooner if concerns. Related to Supervision of high risk , 1st trimester domestic violence seat belt use childbirth classes / hospital fa cilities Genetic Testing Book Vitamins travel tobacco (ask, advise , assess, assist and arrange) alcohol illicit / recreational drugs use of any medicatio ns (including supplements, vitamins, herbs, OTC drugs) smoking counseling sexual activity exercise indications for ultrasound influenza vaccine environmental / work hazards HIV and other routine t ests risk factors identif ied by history anticipated course of c are nutrition and weight gain counseling, special diet toxoplasmosis precau tions (cats / raw meat) Will try natroba, ap ply as per instructions. F/u with PCP in 2 weks for recheck or sooner if problems. Related to Head-louse infestation Pt to f/u with PCP i n 7-10 days if not better or sooner if problems, advised to increase fluids and frequent hand washing. Related to Upper respiratory infection Keep appt for eye ex am Will check labs and call with resultsIncreased water intake excederin as needed for headacheFollow up if headache does not resolve with eye glass change or with further issues or concerns Related to Headache Discussed allergiesR X sent to pharmacyFollow up with issues or concerns Related to Allergic rhinitis, unspecified Sign for recordsWill check labs and call with resultsBH consultedGenesite doneZoloft started Hydroxyzine started Recommend counselingFolow up in 6 weeks for a recheck Related to Depression Weight control education Related to Depression Impression/Plan - He adaches not likley ocular related. Rx change today improves vision, but changes aren't such that uncorrected they sould cause headaches. However, any eye strain my exacerbate any headache. Discussed. Related to Headache 1. Continue yearly w ell exams2. Establish with a PCP3. Appointment scheduled for C4. Counseling for BTL with Dr. Batista scheduled Related to Encounter for routine follow-up Assessments Type Assessment Date No Information Patient Care Teams Name Effective Dates (start - stop) Status Members No Information
--- OUTSIDE RECORDS SUMMARY | 2025-06-20 20:10 | XMS_ITS | Patient Health Record ---
Author Organization [facility] Address [address] [place] [address] Care Team Providers Care Entertainment Musician Name Role Phone Johan Rodrigues Primary Care Provider [phone] Allergies Allergen (clinical drug ingredient) Drug/Non Drug Allergy documented on EMR Reaction Allergy Type Onset Date Status morphine Morphine rash Drug Allergy Active Reason For Referral No Information Social History Sex Assigned At : Social History Observation Description Sex Assigned At Female Plan Of Treatment No Information Insurance Providers Payer Name Payer Address Payer Phone Subscriber Number Group Number Insured Name Patient Relationship to Insured Coverage Start Date Coverage End Date [employer] [address] [address] [place] [address] [id number] Nerissa Sutherland Self - patient is the insured [employer] [address] [place] [address] [id number] Nerissa Sutherland Self - patient is the insured Medical (General) History Medical History History ICD Code sinus trouble blood transfusion seasonal allergies mental disabilities phychiatric tx
[2025-06-20 20:30] VITALS: BP 126/84; PULSE 76; RESP 18; TEMP 36.8; O2SAT 100; BMI 34.7
--- NOTE | 2025-06-20 22:18 | W.ED.BACK ---
HPI - Back Pain/Injury General: Chief Complaint: Back Pain/Injury Stated Complaint: back pain getting worse Time Seen by Provider: 06/20/25 21:36 Source: patient Mode of arrival: ambulatory Limitations: no limitations History of Present Illness: Patient is a 34-year-old female presents to ED today with complaints of back pain. 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 She states over the past few days she has felt like she has been beaten to her back. She often times hears crunching or grinding in her back. Patient feels like her back feels sore all over . She will intermittently have some paresthesias to her legs. She does not complain of saddle anesthesia or bowel/bladder incontinence/retention. MD elicited complaint: back pain Pertinent past history: prior back pain Onset (ago): day(s) Timing: constant Severity: severe Similar Symptoms Previously: Yes Quality: dull and aching Location: lumbar spine and thoracic spine Radiation: none Exacerbating factors: movement and other (palpation) Relieving factors: none Associated symptoms: Reports no associated symptoms; Deny abdominal pain, chills, difficulty walking, dysuria, fatigue, fever(s) or hematuria Related Data Home Medications ?Medication ?Instructions ?Recorded ?Confirmed acetaminophen 325 mg capsule 325 mg PO QID PRN Pain 08/07/22 11/03/24 (Tylenol) ibuprofen 200 mg tablet (Advil) 200 mg PO Q6H PRN Pain 08/07/22 11/03/24 Previous Rx's ?Medication ?Instructions ?Recorded rizatriptan 10 mg tablet See Rx Instructions PO .COMPLEX 07/21/23 #10 tabs cholecalciferol (vitamin D3) 1,250 50,000 unit PO .once weekly 4 12/03/23 mcg (50,000 unit) capsule weeks #4 caps cyclobenzaprine 5 mg tablet 5 mg PO TID PRN muscle spasm #60 12/03/23 tabs cetirizine 10 mg tablet (Zyrtec) 10 mg PO DAILY #30 tabs 05/23/24 ondansetron 4 mg disintegrating 4 mg PO Q8H PRN nausea and 09/17/24 tablet vomiting #10 tabs albuterol sulfate 90 mcg/actuation 2 puff inhalation Q6H PRN 11/03/24 aerosol inhaler shortness of breath or wheezing #8.5 grams amoxicillin 875 mg-potassium 1 tab PO BID 7 days #14 tabs 11/03/24 clavulanate 125 mg tablet fexofenadine 60 mg-pseudoephedrine 1 tab PO Q12H PRN sinus symptoms 11/03/24 ER 120 mg tablet,ext.release,12 hr 14 days #30 tabs (Kristy-D 12 Hour) prednisone 10 mg tablet 30 mg (3 x 10 mg) PO DAILY 5 days 11/03/24 #15 tabs cyclobenzaprine 10 mg tablet 10 mg PO TID #14 tabs 06/20/25 methylprednisolone 4 mg tablets in See Rx Instructions PO .COMPLEX 06/20/25 a dose pack (Medrol (Timoteo)) #21 ea Allergies Allergy/AdvReac Type Severity Reaction Status Date / Time morphine Allergy ADR-Itching Verified 11/03/24 09:14 Review of Systems Const: Denies: fever(s), chills, body aches, fatigue or malaise Card: Denies: chest pain Resp: Denies: dyspnea GI: Denies: abdominal pain : Denies: flank pain, dysuria or hematuria Musc: Reports: back pain; Denies: neck pain, extremity pain, extremity swelling, joint pain, joint swelling or joint redness Neuro: Denies: headache(s), numbness in extremities, weakness in extremities, sensory changes or difficulty walking PFSH ED PFSH: Medical History Major depressive disorder, recurrent, moderate Depression Abdominal cramping Nausea in adult patient Chronic headaches Reports having chronic headaches since the age of 5. Has been evaluated and all evaluation has been negative. She takes ibuprofen and Tylenol as needed for headaches. No pertinent past medical history Denies diabetes, asthma, hypertension, seizures, DVT/PE. PCP: Volodymyr [facility] Anxiety with depression Surgical History Status post tubal ligation 10/25/2020--- tubal ligation via umbilicus via modified Joyce method [place]. Hidalgo [place] [facility] [place] Pathology confirmed fallopian tubes with benign pathology. S/P wisdom tooth extraction History of laparoscopy 02/16/2010---> Dr. Genao for pelvic pain-normal uterus ovaries and tubes. No endometriosis or scarring noted.(Operative report scanned) History of appendectomy 2011[place] [facility] History of dilatation and curettage 2009 after a miscarriage by Dr. Archie Abel [place] [facility] Family History Mother Family history of thyroid problem Diabetes Hypertension Heart disease Thyroid disease Grandmother Breast cancer Paternal grandmother, diagnosed in her late 60s Colon cancer Maternal grandmother, age at diagnosis unknown Diabetes Maternal grandmother Family/Other Breast cancer Paternal aunt, diagnosed in her 40s Ovarian cancer Maternal aunt, age at diagnosis unknown Diabetes Paternal aunt Father Diabetes Hypertension Stroke Denies family history of Hyperlipidemia Uterine cancer Social History Smoking and tobacco/nicotine status: unknown if used tobacco/nicotine Substance/Drug Use: never Physical Exam Const: COMMON NORMALS: no acute distress, average body habitus, patient oriented x3, no limitations, alert and well nourished GENERAL APPEARANCE: cooperative Neck/C-Spine: COMMON NORMALS: full ROM CERVICAL SPINE: Yes cervical ROM normal and No Cervical spine tenderness GI: COMMON NORMALS: Soft to palpation, non-tender and no masses PALPATION: Yes Soft to palpation : COMMON NORMALS: Yes no CVA tenderness BLADDER/KIDNEY EXAM: Yes no CVA tenderness Back/Pelvis: COMMON NORMALS: no CVA tenderness THORACIC SPINE/UPPER BACK: Yes normal to inspection, Yes ROM limited, Yes pain with ROM, Yes thoracic spinal tenderness and Yes paraspinal muscle tenderness LUMBAR SPINE/LOWER BACK: Yes normal to inspection, Yes ROM limited, Yes pain with ROM, Yes lumbar spinal tenderness, Yes paraspinal muscle tenderness and Yes straight leg raise negative bilaterally PELVIS: Yes buttocks normal and No sciatic notch tenderness SACROILIAC JOINTS: Yes SI joints normal SACRUM: no tenderness COCCYX: no tenderness Extremity: COMMON NORMALS: capillary refill normal, no clubbing, cyanosis or edema, no calf tenderness and no pedal edema GENERAL: Yes normal exam except as noted Neuro: COMMON NORMALS: patient oriented x3, moves all extremities, no focal motor deficits, no sensory deficits noted and gait normal SENSORIUM/ORIENTATION: Yes alert Skin: COMMON NORMALS: no rashes or lesions noted GENERAL SKIN EXAM: no rashes or lesions noted Course Vital Signs: Vital signs: Vital Signs Temperature 98.3 F 06/20/25 20:30 Pulse Rate 76 06/20/25 20:30 Respiratory Rate 18 06/20/25 20:30 Blood Pressure 126/84 06/20/25 20:30 Pulse Oximetry 100 06/20/25 20:30 Oxygen Delivery Me thod Room Air 06/20/25 20:30 MDM - Back Pain/Injury Medical Decision Making Patient feeling better after IM medications given here. No red flag symptoms on history or physical examination. XRs obtained and unremarkable. Will have her follow-up with primary care. Return to ED precautions discussed. Differential Diagnosis Likely lumbar radiculopathy, strain of lumbar region and thoracic back pain Medical Records I reviewed the patient's medical records. Labs Radiology Impressions Lumbar Spine X-Ray 06/20/25 22:29 IMPRESSION: No acute findings. If high clinical concern for acute osseous injury is present. CT spine without contrast can be obtained for further characterization. Thoracic Spine X-Ray 06/20/25 22:29 IMPRESSION: 1. No subluxations. 2. No substantial degenerative change. 3. If high clinical concern for acute osseous injury is present. CT spine without contrast can be obtained for further characterization. All radiology interpretation(s) finalized by discharge Discharge Plan Discharge Patient Disposition: Home Health Service Clinical Impression: Back pain Qualifiers: Back pain location: back pain in unspecified location Chronicity: unspecified Back pain laterality: midline Qualified Code(s): M54.89 - Other dorsalgia Condition: Stable Prescriptions: New cyclobenzaprine 10 mg tablet 10 mg PO TID Qty: 14 0RF methylprednisolone [Medrol (Timoteo)] 4 mg tablets,dose pack See Rx Instructions .ROUTE .COMPLEX Qty: 21 0RF Rx Instructions: orally per package directions No Action cetirizine [Zyrtec] 10 mg tablet 10 mg PO DAILY Qty: 30 0RF ondansetron 4 mg tablet,disintegrating 4 mg PO Q8H PRN (Reason: nausea and vomiting) Qty: 10 0RF fexofenadine-pseudoephedrine [Kristy-D 12 Hour] 60-120 mg tablet extended release 12 hr 1 tab PO Q12H PRN (Reason: sinus symptoms) 14 Days Qty: 30 0RF prednisone 10 mg tablet 30 mg PO DAILY 5 Days Qty: 15 0RF amoxicillin-pot clavulanate 875-125 mg tablet 1 tab PO BID 7 Days Qty: 14 0RF albuterol sulfate 90 mcg/actuation HFA aerosol inhaler 2 puff inhalation Q6H PRN (Reason: shortness of breath or wheezing) Qty: 8.5 2RF rizatriptan 10 mg tablet See Rx Instructions PO .COMPLEX Qty: 10 2RF Rx Instructions: take 1 tab at onset of headache; if no relief may repeat 1 tab after at least 2 hrs; max = 3 tabs/24 hr PO cholecalciferol (vitamin D3) 1,250 mcg (50,000 unit) capsule 50,000 unit PO .once weekly 28 Days Qty: 4 3RF cyclobenzaprine 5 mg tablet 5 mg PO TID PRN (Reason: muscle spasm) Qty: 60 0RF Advil 200 mg Tablet 200 mg PO Q6H PRN (Reason: Pain) Tylenol 325 mg Capsule 325 mg PO QID PRN (Reason: Pain) Discharge Orders: Discharge ED (Routine); Ordered 06/20/25 Ordered By: Sun Melgar Referrals: Antonietta Lino FNP-C [Primary Care Provider, Family Practice] Patient Instructions: Back Pain (ED), Patient Portal & Kwame Instructions Activity Restrictions/Additional Instructions: As we discussed, we will have case management help set you up with a follow-up appointment with primary care provider for further evaluation of your back pain. Stand Alone Forms: Work/School Release Print Language: Samoan Coding Level of Care Code ED Topstitcher Zigzag for Mckenna Robles
--- NOTE | 2025-06-20 22:29 | XRR_ITS ---
PROCEDURE INFORMATION: Exam: XR Lumbosacral Spine Exam date and time: 06/20/2025 10:55 PM Age: 34 years old Clinical indication: Low back pain TECHNIQUE: Imaging protocol: Radiologic exam of the lumbosacral spine. Views: 2 or 3 views. COMPARISON: CR XR lumbar spine 2-3V* [id number] 10/04/2023 8:34 PM FINDINGS: Bones/joints: Normal. No acute fracture. Normal alignment. Soft tissues: Unremarkable. XR/XR lumbar spine 2-3V* [id number] IMPRESSION: No acute findings. If high clinical concern for acute osseous injury is present. CT spine without contrast can be obtained for further characterization.
--- NOTE | 2025-06-20 22:29 | XRR_ITS ---
PROCEDURE INFORMATION: Exam: XR Thoracic Spine Exam date and time: 06/20/2025 10:48 PM Age: 34 years old Clinical indication: Pain in thoracic spine TECHNIQUE: Imaging protocol: Radiologic exam of the thoracic spine. Views: 3 views. COMPARISON: CR XR thoracic spine 3V* [id number] 10/04/2023 8:34 PM FINDINGS: Bones/joints: No acute fracture. No subluxations. Soft tissues: Unremarkable. XR/XR thoracic spine 3V* [id number] IMPRESSION: 1. No subluxations. 2. No substantial degenerative change. 3. If high clinical concern for acute osseous injury is present. CT spine without contrast can be obtained for further characterization.
[2025-06-20] MEDS: orphenadrine 30 mg/mL Inj 2 mL 60 MG IM (23:21)
--- NOTE | 2025-06-21 08:12 | DCPLANNER ---
Sent message to [facility] for follow up aleks Lino.
== END 2025-06-21 00:09 | disposition home health service (06) ==
PROVIDERS: Emergency Provider Physician Assistant; PCP Nurse Practitioner Family
DX: M54.89 Other dorsalgia (principal)
CPT/HCPCS: 72072; 72100; 96372; 99284; J1100; J1885; J2360

== ENCOUNTER → 2025-07-13 14:07 | Outpatient (BNVA) | payer BC, SELFPAY | PROVIDERS: PCP Nurse Practitioner Family | DX: Z01.89 Encounter for other specified special examinations (principal); R53.83 Other fatigue | CPT/HCPCS: 80053; 82306; 82728; 83550; 84443; 85025 ==

== ENCOUNTER 2025-08-02 11:44 | Outpatient (CLI) | payer BC, SELFPAY ==
--- NOTE | 2025-08-02 11:45 | MR_ITS ---
WS: [id number] MRI LUMBAR SPINE NONCONTRAST TECHNIQUE: Sagittal T1, T2 and STIR imaging. Axial T1 and T2 imaging. CLINICAL INFORMATION: lumbar pain COMPARISON: None. FINDINGS: Mild lumbar curve. No acute compression. No high-grade central canal stenosis. Mild annular bulging T11-T12. L1-L2: Mild facet arthropathy. L2-L3: Mild facet arthropathy. Speculum foramen are patent. L3-L4: Mild annular bulging. Slight effacement of the ventral thecal sac. Mild facet arthropathy. Foramen are patent. L4-L5: Mild disc bulging. Mild to moderate central canal stenosis. Impingement of the subarticular recess. Moderate facet arthropathy. Mild RIGHT foraminal narrowing. L5-S1: Mild disc bulging with slight impingement of traversing S1 nerve roots bilaterally. Advanced facet arthropathy. Foramen are patent. Visualized pelvic bony structures: Normal. Paravertebral soft tissues: Normal. Small LEFT renal cyst. 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 Incidental Tarlov cyst in the sacrum. MR/MR lumbar spine wo con* [id number] IMPRESSION: 1. Mild to moderate central canal stenosis L4-5 due to disc bulging in combina tion with facet arthropathy and ligamentum flavum hypertrophy. Impingement of t he traversing L5 nerve roots bilaterally. 2. Mild RIGHT L4-5 foraminal narrowing. 3. Mild disc bulging L5-S1 with slight impingement of traversing RIGHT greater than LEFT S1 nerve roots with moderate facet arthropathy. 4. Moderate facet arthropathy L4-5 and advanced facet arthropathy L5-S1.
== END 2025-08-02 11:45 | disposition home or self-care (01) ==
LOC: RAD 11:44
PROVIDERS: PCP Nurse Practitioner Family
DX: M48.061 Spinal stenosis, lumbar region without neurogenic claudication (principal); G89.29 Other chronic pain; M51.369 Other intervertebral disc degeneration, lumbar region without mention of lumbar back pain or lower extremity pain; M47.896 Other spondylosis, lumbar region; M24.28 Disorder of ligament, vertebrae; R93.7 Abnormal findings on diagnostic imaging of other parts of musculoskeletal system; M51.379 Other intervertebral disc degeneration, lumbosacral region without mention of lumbar back pain or lower extremity pain; M47.897 Other spondylosis, lumbosacral region; M43.8X6 Other specified deforming dorsopathies, lumbar region; M51.34 Other intervertebral disc degeneration, thoracic region; N28.1 Cyst of kidney, acquired; G93.5 Compression of brain; G96.191 Perineural cyst
CPT/HCPCS: 72148

== ENCOUNTER → 2025-08-05 11:37 | Outpatient (BNVA) | payer BC, SELFPAY | PROVIDERS: PCP Nurse Practitioner Family | DX: Z12.4 Encounter for screening for malignant neoplasm of cervix (principal) | CPT/HCPCS: 87624 ==

== ENCOUNTER 2025-08-22 09:20 | Outpatient (CLI) | payer BC, MEDICAID, SELFPAY ==
--- NOTE | 2025-08-22 10:00 | MM_ITS ---
WS: [id number] DIAGNOSTIC BILATERAL DIGITAL BREAST TOMOSYNTHESIS MAMMOGRAPHY WITH CAD RIGHT breast ultrasound, limited. HISTORY: RIGHT breast tenderness. COMPARISON: None available. TECHNIQUE: Bilateral craniocaudad, mediolateral oblique, and mediolateral views are submitted with tomosynthesis and SM. Spot compression RIGHT MLO. Computer aided detection utilized. Breast composition: There are scattered areas of fibroglandular density. Well-circumscribed mass measuring 8 x 8 x 8 mm in the upper outer quadrant of the RIGHT breast. Mass localizes to 10:00 at a posterior depth. There is no abnormality in the inferior breast at the site of pain and discomfort. LEFT breast is negative. RIGHT breast ultrasound, limited. No abnormality noted along the inferior RIGHT breast at the area of pain and tenderness. Normal fibroglandular tissue. Benign lymph node at 10:00, 4 cm the nipple measures 0.8 x 0.8 x 0.4 cm. MM/MM diag BI tomosynthesis [id number] IMPRESSION: BI-RADS: 2 - Benign. FOLLOW UP: Age 38
--- NOTE | 2025-08-22 10:30 | US_ITS ---
WS: [id number] DIAGNOSTIC BILATERAL DIGITAL BREAST TOMOSYNTHESIS MAMMOGRAPHY WITH CAD RIGHT breast ultrasound, limited. HISTORY: RIGHT breast tenderness. COMPARISON: None available. TECHNIQUE: Bilateral craniocaudad, mediolateral oblique, and mediolateral views are submitted with tomosynthesis and SM. Spot compression RIGHT MLO. Computer aided detection utilized. Breast composition: There are scattered areas of fibroglandular density. Well-circumscribed mass measuring 8 x 8 x 8 mm in the upper outer quadrant of the RIGHT breast. Mass localizes to 10:00 at a posterior depth. There is no abnormality in the inferior breast at the site of pain and discomfort. LEFT breast is negative. RIGHT breast ultrasound, limited. No abnormality noted along the inferior RIGHT breast at the area of pain and tenderness. Normal fibroglandular tissue. Benign lymph node at 10:00, 4 cm the nipple measures 0.8 x 0.8 x 0.4 cm. US/US breast RT limited* [id number] IMPRESSION: BI-RADS: 2 - Benign. FOLLOW UP: Age 38
== END 2025-08-22 09:21 | disposition home or self-care (01) ==
LOC: RAD 09:21
PROVIDERS: PCP Nurse Practitioner Family
DX: N64.4 Mastodynia (principal); R92.323 Mammographic fibroglandular density, bilateral breasts; N63.11 Unspecified lump in the right breast, upper outer quadrant; D36.0 Benign neoplasm of lymph nodes
CPT/HCPCS: 76642; 77062; G0279